=== PATIENT | male | born 1945 | race Caucasian/White ===

== ENCOUNTER 2016-12-23 10:45 | Observation (INO) ==
--- NOTE | 2016-12-23 11:36 | EKG Report ---
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
--- NOTE | 2016-12-23 11:37 | Emergency Department Note ---
Arrival - Arrival Chief Complaint: Dizziness Stated Complaint: dizziness,light headed ED Nursing Triage Note: C/o dizziness-onset 3 days ago. Reports he was seen at [facility] on and dx with vertigo. Reports that he was not given any prescriptions to help with dizziness and is no better. Mode of Arrival: Wheelchair Limitations: No Limitations Source: Patient, Family Time Seen by Provider: 12/23/16 11:15 - History of Present Illness HPI Narrative: The patient complains of dizziness and weakness for the past 2 days off and on. It is worse when he sits up. He describes it as feeling off balance and feeling like the room spinning but also feeling lightheaded. No nausea or vomiting. No chest pain or shortness of breath. No weakness or numbness. His states that he became very pale when he had an episode. He was seen at [facility] 2 days ago and told he was dehydrated and had vertigo but was given no treatment or prescriptions. He took meclizine yesterday, which was apparently left over from a prior episode of vertigo, but it did not help. Allergies/Adverse Reactions: Allergies Allergy/AdvReac Type Severity Reaction Status Date / Time No Known Allergies Allergy Verified 12/23/16 10:54 Home Medications: Home Medications Medication Instructions Recorded Confirmed Type Aspirin [Ecotrin] 81 mg PO DAILY 02/01/16 12/23/16 History Docusate Sodium 100 mg PO DAILY 02/01/16 12/23/16 History Ferrous Sulfate [Ferrous Sulfate 325 mg PO DAILY 02/01/16 12/23/16 History Cap] Levothyroxine Tab [Synthroid Tab] 50 mcg PO QAM 02/01/16 12/23/16 History amLODIPine [Norvasc] 2.5 mg PO DAILY #30 tablet 02/03/16 12/23/16 Rx Atorvastatin [Lipitor] 20 mg PO BEDTIME 12/23/16 12/23/16 History Pantoprazole Tab [Protonix Tab] 20 mg PO DAILY 12/23/16 12/23/16 History Review of System - Review of System 12 point system: reviewed and no additional remarkable complaints except as stated - Review of System Constitutional: Absent: fever Eyes: Absent: vision change Head/Ears/Nose/Throat: Absent: nasal drainage, sore throat Respiratory: Absent: cough Cardiovascular: Absent: chest pain Gastrointestinal: Absent: nausea, vomiting Musculoskeletal: Present: arm pain (right shoulder) Neurological: Present: abnormal gait, vertigo. Absent: headache, weakness, numbness Medical,Surgical,& Family Hx - Medical History Cardio: History of: Hypertension Neurology: History of: Parkinson's Disease Endocrine: History of: Dyslipidemia, Thyroid Disorder Gastrointestinal: History of: GERD Hematology: History of: Anemia - Surgical History Surgical History: noncontributory - Family History Family History: noncontributory - Social History Smoking Status: Never smoker Frequency of Alcohol Use: None Type of Drug Use: None Exam Physical Examination: GENERAL: Alert. No acute distress. HEENT: Normocephalic and atraumatic. PERRLA. EOMI. No nystagmus. Tympanic membranes normal bilaterally. There is no nasal drainage. No pharyngeal erythema or exudate. NECK: Normal inspection. Supple. No lymphadenopathy or meningismus. LUNGS: No respiratory distress. Clear to auscultation bilaterally, no wheezes, rales or rhonchi. HEART: Regular rate and rhythm. ABDOMEN: Soft, nontender and nondistended with normoactive bowel sounds. BACK: Normal inspection. SKIN: Color normal. Warm and dry. EXTREMITIES: Nontender. Normal range of motion. No pedal edema. NEUROLOGICAL/PSYCHIATRIC: Alert and oriented 3 with normal mood and affect. Essential tremor. Cranial nerves normal. No motor or sensory deficit. Hallpike negative bilaterally. Normal finger to nose bilaterally. Vital Signs: Vital Signs Temperature 97.0 F L 12/23/16 11:15 Pulse Rate 60 12/23/16 13:30 Respiratory Rate 20 12/23/16 13:30 Blood Pressure 137/82 12/23/16 13:30 O2 Sat by Pulse Oximetry 96 12/23/16 13:30 Course - Reevaluation(s) Reevaluation #1: Although the patient has had problems with syncopal and presyncopal dizziness" in the past, this appears to be vertigo. He has not had syncope or felt like he was going to pass out. He complains of the room spinning and feeling off balance. He has not fallen yet but has come close when he gets up to go to the restroom and his is not able to hold him up any longer. I have discussed this patient with the hospitalist service who will see him and admit. Time: 14:54 Results - Labs CBC & BMP: 12/23/16 11:14 12/23/16 12:22 Lab Results: I have reviewed the patients labs Labs: Laboratory Tests 12/23/16 12/23/16 12/23/16 11:14 11:31 12:22 INR 1.0 Troponin I < 0.015 Free T4 0.94 TSH 3rd Generation 2.260 Ur Specific [place] 1.006 Urine Leukocytes Negative Urine RBC 2 Urine WBC <1 - Impressions CT of the head showed no acute abnormality. Disposition Clinical Impression: Vertigo Case discussed with: patient, patient's family Disposition: Still a Patient Condition: Stable Time of Disposition: 14:54
[2016-12-23 11:42] LABS: Basophils # 0.1 10*3/uL (0.0-0.2); Basophils % 0.8 % (0.0-0.8); Eosinophils # 0.2 10*3/uL (0.0-0.87); Eosinophils % 2.9 % (0.00-10.9); Hemoglobin 13.1 GM/DL (14.0-18.0); Immature Granulocytes % 0.2 %; Immature Granulocytes Absolute 0.01 #; Lymphocytes % 16.3 % (21.2-54.2); Mean Corpuscular HGB Conc 34.5 GM/DL (32-36); Mean Corpuscular Hemoglobin 34 PG (27-34); Mean Corpuscular Volume 98.4 FL (87-102); Mean Platelet Volume 9.2 FL (9.6-12.0); Monocytes # 0.4 10*3/uL (0.11-0.8); Monocytes % 7.2 % (1.7-12.7); Neutrophils # 4.5 10*3/uL (1.4-7.4); Neutrophils % 72.6 % (38.7-73.9); Platelet Count 237 T/CUMM (130-400); Red Blood Count 3.86 MC/CUMM (3.8-5.5); Red Cell Distribution Width 12.5 % (9.3-17.3); White Blood Count 6.1 T/CUMM (4-12)
[2016-12-23 11:53] LABS: PT Patient Result 10.5 SECS
--- NOTE | 2016-12-23 12:19 | CT Report ---
History: Dizziness Date: 12/23/2016 Study: CT head without contrast Comparison exam: CT head February 16, [address] sections were obtained through the head without IV contrast. Total DLP measures 1081.1 mGy*cm. The CT exam was performed using one or more of the following dose reduction techniques: Automated exposure control and adjustment of the mA and/or kV according to patient size. The ventricles are midline in position without evidence of hydrocephalus. There is no mass or parenchymal hemorrhage. There is no gross CT evidence of acute cortical stroke. There is a small amount of ill-defined low density in the periventricular white matter without mass effect compatible with changes of small vessel disease. There is no extra-axial hematoma. The partially visualized paranasal sinuses and mastoid air cells are clear. There is no acute abnormality of the calvarium. Impression: No acute intracranial abnormality compared to the previous study PROCEDURE INTERPRETED AT [facility] DEPARTMENT OF RADIOLOGY Final Report Signed by: Dr. Carolin Ramírez
[2016-12-23 12:51] LABS: Apearance,Urine CLEAR (Clear); Bilirubin,Urine Negative (Negative); Blood, Urine Small mg/dL (Negative); Glucose,Urine (UA) Negative (Negative); Ketones,Urine Negative (Negative); Mucus,Urine Occasional /LPF (Occasional); Nitrite,Urine Negative (Negative); Protein,Urine Negative; RBC,Urine 2 /HPF (0-4); Squamous Epithelial Cell,Urine Occasional /HPF (0-10); Urine Color Yellow (Yellow); Urine Specific Gravity 1.006 (1.001-1.035); Urine Urobilinogen < 2.0 EU/DL (0.2-1.0); WBC,Urine <1 /HPF (0-6)
[2016-12-23 13:07] LABS: Alanine Aminotransferase 32 U/L (16-61); Albumin 3.9 G/DL (3.4-5.0); Alkaline Phosphatase 77 U/L (45-117); Aspartate Amino Transferase 24 U/L (0-37); Bilirubin,Total < 0.39 MG/DL (0.2-1.0); Blood Urea Nitrogen 9 MG/DL (7-18); Free T4 (Free Thyroxine) 0.94 NG/DL (0.76-1.46); Glucose 102 MG/DL (74-106); Osmolality,Calculated 275.5 MOS/KG (273-304); Potassium 4.1 MMOL/L (3.5-5.1); Sodium 139 MMOL/L (136-145); Total Protein 7.1 G/DL (6.4-8.3); Troponin I Only < 0.015 NG/ML (0.00-0.045)
--- NOTE | 2016-12-23 16:23 | Hospitalist History & Physical ---
<Christiano Johansen - Last Filed: 12/23/16 16:15> Assessment and Plan (1) Vertigo Status: Acute Current Visit: Yes History of Present Illness Chief complaint: veritgo History of present illness: Mr. Hunter is a 71-year-old white male patient with complaints of dizziness and weakness that has lasted for the last 2 days on and off. Patient reports mild nausea but no vomiting or chest pain. Patient also denies being short of breath. Patient describes the episodes as feeling off balance with the room spinning but also being lightheaded. He stated that he took 3 meclizine at home yesterday which resulted in elevated blood pressure but did not have his vertigo. Patient has a past medical history of hypertension,dyslipidemia, thyroid disorder, Parkinson's disease, and anemia. Patient reports a similar episode last year which resulted in med linq device being implanted by Dr. Conrad. Patient will be admitted to the hospitalist service for further evaluation and treatment. Patient will be placed in monitored bed. ENT and cardiology will be consulted for recommendations for the patient. Home Medications Medication Instructions Recorded Confirmed Type Aspirin [Ecotrin] 81 mg PO DAILY 02/01/16 12/23/16 History Docusate Sodium 100 mg PO DAILY 02/01/16 12/23/16 History Ferrous Sulfate [Ferrous Sulfate 325 mg PO DAILY 02/01/16 12/23/16 History Cap] Levothyroxine Tab [Synthroid Tab] 50 mcg PO QAM 02/01/16 12/23/16 History amLODIPine [Norvasc] 2.5 mg PO DAILY #30 tablet 02/03/16 12/23/16 Rx Atorvastatin [Lipitor] 20 mg PO BEDTIME 12/23/16 12/23/16 History Pantoprazole Tab [Protonix Tab] 20 mg PO DAILY 12/23/16 12/23/16 History Allergies Allergy/AdvReac Type Severity Reaction Status Date / Time No Known Allergies Allergy Verified 12/23/16 10:54 Medical,Surgical,& Family Hx - Medical History Cardio: History of: Hypertension Neurology: History of: Parkinson's Disease Endocrine: History of: Dyslipidemia, Thyroid Disorder Gastrointestinal: History of: GERD Hematology: History of: Anemia - Social History Smoking Status: Never smoker Frequency of Alcohol Use: None Type of Drug Use: None Marital Status: Lives With:: Spouse Exam - Constitutional Vitals: Period Temp Pulse Resp BP Sys/Ford Pulse Ox Last 24 Hr 97.0 F-97.0 F 59-70 18-20 137-162/82-93 95-97 General appearance: normal weight, no acute distress - Head Head exam: Present: normal inspection, normocephalic - Eye Eye exam: Present: EOMI Pupils: Present: DONI - Neck Neck exam: Present: normal inspection - Respiratory Respiratory exam: Present: clear to auscultation bilaterally - Cardiovascular Cardiovascular exam: Present: regular rate and rhythm - GI/Abdominal GI/Abdominal exam: Present: normal bowel sounds, soft. Absent: tenderness - Extremities Exam Extremities exam: Present: normal inspection, normal capillary refill, full ROM - Neurological Exam Neurological exam: Present: oriented X3 - Psychiatric Psychiatric exam: Present: normal affect, normal mood - Skin Skin exam: Present: normal color, warm, dry Results - Labs CBC & BMP: 12/23/16 11:14 12/23/16 12:22 Lab Results: I have reviewed the past 24 hour labs <Dalton Mars - Last Filed: 12/23/16 16:35> Assessment and Plan (1) HTN (hypertension) Status: Chronic Current Visit: No (2) Pre-syncope Status: Resolved Current Visit: No (3) Vertigo Status: Acute Current Visit: Yes History of Present Illness History of present illness: Mr. Polanco is a 71 year old male Patient was seen independently by me in the emergency room. Case was discussed with patient and his . He's had significantly extensive workup for dizziness I Dr. Maynard and Dr. Conrad. He had a living device placed and had carotid Dopplers echocardiogram and stress testing done. He also was seen by Dr. Quarles and had an MRI done which apparently was unremarkable family. He was also sent to [facility] for evaluation and felt that he does not have Parkinson 's disease and his Sinemet was discontinued. He is currently presenting with 2 day symptoms when he does feel the room was spinning although it's not occurring all the time. He does not seem to have any nystagmus when I examined him. He tried one dose of meclizine but it did not help. He's being admitted for observation and ENT evaluation along with possible evaluation for benign positional vertigo. Patient and family were concerned about going home today as they felt that he may fall. We will get PT to do [place]-Hallpike maneuver and [facility] for their opinion. I'm reluctant to start him on Valium till its confirm that he has benign positional vertigo. We will also consult Dr. Maynard who has seen him on several occasions for these issues. We will also check his thyroid functions. On examination patient does not have Romberg' s and I did not appreciate any horizontal or vertical nystagmus. Review of systems revealed dizziness and vertigo. Patient denied chest pain or shortness of breath. I've reviewed Mrs. johansen history and physical and I agree with the documentation except as noted above Exam - Constitutional Vitals: Period Temp Pulse Resp BP Sys/Ford Pulse Ox Last 24 Hr 97.0 F-97.0 F 56-70 18-20 137-162/82-98 95-97 Results - Labs CBC & BMP: 12/23/16 11:14 12/23/16 12:22
[2016-12-23] MEDS ORDERED: BISACODYL 5 MG TABLET PO PRN (16:29)
[2016-12-23] MEDS ORDERED: DOCUSATE SODIUM 100 MG CAPSULE PO PRN (16:29)
--- NOTE | 2016-12-23 16:41 | XRay Report ---
History: Shortness of breath Date: 12/23/2016 Study: Chest x-ray AP portable Comparison exam: February 02, 2016 chest x-ray There is cardiomegaly. The mediastinal contour is unchanged. There is mild ectasia and tortuosity of the thoracic aorta. The pulmonary vasculature is not engorged. The lungs and pleural spaces are clear. Electronic monitoring device overlies the left mid chest. The osseous structures are unchanged. Impression: No acute cardiopulmonary process compared to the previous study. Cardiomegaly PROCEDURE INTERPRETED AT [facility] DEPARTMENT OF RADIOLOGY Final Report Signed by: Dr. Carolin Ramírez
[2016-12-23] MEDS ORDERED: ACETAMINOPHEN 325 MG TABLET PO PRN (17:56)
[2016-12-23] MEDS ORDERED: ENOXAPARIN 40 MG/0.4 ML SYRINGE SUBCUT ONE (19:00)
[2016-12-23] MEDS: ATORVASTATIN 20 MG TABLET PO SCH (20:37)
[2016-12-23] MEDS: ACETAMINOPHEN 325 MG TABLET PO PRN (20:38)
[2016-12-23] MEDS: PRIMIDONE 50 MG TABLET PO SCH (23:35)
[2016-12-24 05:44] LABS: Basophils # 0.1 10*3/uL (0.0-0.2); Basophils % 0.9 % (0.0-0.8); Eosinophils # 0.2 10*3/uL (0.0-0.87); Eosinophils % 4.3 % (0.00-10.9); Hematocrit 33.1 VOL% (42.0-52.0); Hemoglobin 11.6 GM/DL (14.0-18.0); Immature Granulocytes % 0.4 %; Immature Granulocytes Absolute 0.02 #; Lymphocytes # 1.8 10*3/uL (1.4-4.0); Lymphocytes % 34.3 % (21.2-54.2); Mean Corpuscular Hemoglobin 34 PG (27-34); Mean Corpuscular Volume 96.8 FL (87-102); Mean Platelet Volume 9.5 FL (9.6-12.0); Monocytes # 0.6 10*3/uL (0.11-0.8); Monocytes % 10.4 % (1.7-12.7); Neutrophils # 2.7 10*3/uL (1.4-7.4); Neutrophils % 49.7 % (38.7-73.9); Platelet Count 220 T/CUMM (130-400); Red Blood Count 3.42 MC/CUMM (3.8-5.5); Red Cell Distribution Width 12.6 % (9.3-17.3); White Blood Count 5.4 T/CUMM (4-12)
[2016-12-24 06:12] LABS: Calcium 8.5 MG/DL (8.5-10.1); Osmolality,Calculated 276.4 MOS/KG (273-304); Potassium 3.8 MMOL/L (3.5-5.1)
[2016-12-24 06:17] LABS: Albumin 3.4 G/DL (3.4-5.0); Bilirubin,Total 0.9 MG/DL (0.2-1.0); Calcium 8.7 MG/DL (8.5-10.1); Potassium 3.8 MMOL/L (3.5-5.1); Total Protein 6.2 G/DL (6.4-8.3)
[2016-12-24] MEDS: LEVOTHYROXINE 50 MCG TABLET PO SCH (07:23)
[2016-12-24] MEDS ORDERED: PANTOPRAZOLE 40 MG TABLET PO SCH (09:00)
[2016-12-24] MEDS: ASPIRIN EC 81 MG TABLET PO SCH (09:38)
[2016-12-24] MEDS: amLODIPine 2.5 MG TABLET PO SCH (09:39)
[2016-12-24] MEDS: DOCUSATE SODIUM 100 MG CAPSULE PO SCH (09:39)
[2016-12-24] MEDS: FERROUS SULFATE 325 MG TABLET PO SCH (09:39)
[2016-12-24] MEDS: PRIMIDONE 50 MG TABLET PO SCH ×3 (09:39→18:03)
[2016-12-24] MEDS: PANTOPRAZOLE 40 MG TABLET PO SCH (09:40)
[2016-12-24] MEDS: ACETAMINOPHEN 325 MG TABLET PO PRN (12:08)
--- NOTE | 2016-12-24 12:20 | Hospitalist Progress Note ---
Assessment and Plan (1) Vertigo Status: Acute Assessment and plan: The patient has been having complaint of vertigo and headache. In the emergency room the patient was noted to be hypertensive but this has resolved after admission to the floor. We await consultations with ear nose and throat and neurology positions. Current Visit: Yes (2) Parkinson disease Status: Chronic Current Visit: No (3) HTN (hypertension) Status: Chronic Current Visit: No Hospitalist: Subjective Interval history: The patient was admitted to the hospital with unsteady gait, dizziness, and headache. The patient awaits consultation with the neurologist and ENT physician. Exam - Constitutional Vitals: Period Temp Pulse Resp BP Sys/Ford Pulse Ox Last 24 Hr 97.2 F-97.6 F 55-65 18-20 120-143/67-79 95-98 Exam: Constitutional System: Mild distress. The patient has a resting tremor which is worse on the right Head: Normocephalic, atraumatic. Ears, Nose and Throat System: No evidence of Otitis or Mastoiditis. No epistaxis or discharge Eyes System: Pupils equal, round, and reactive. Extraocular muscles intact. Neck: Supple, without adenopathy, No jugular venous distention. No thyromegaly , neck mass, or prior surgery apparent. Respiratory System: Chest clear to auscultation. Cardiovascular System: Heart with regular rate and rhythm. No murmur. GI System: Abdomen soft, nontender. Normo active bowel sounds present. Results - Labs CBC & BMP: 12/24/16 04:28 12/24/16 04:28 Lab Results: I have reviewed the past 24 hour labs
--- NOTE | 2016-12-24 15:36 | Neurology Consult Note ---
History of Present Illness History of present illness: Mr. Hunter is a 71-year-old right-handed white gentleman past medical history significant for essential tremor who has been admitted to the hospital with complaints of dizziness and weakness that has lasted for the last 2 days on and off. Patient reports mild nausea but no vomiting or chest pain. Patient also denies being short of breath. Patient describes the episodes as feeling off balance with the room spinning but also being lightheaded. He stated that he took 3 meclizine at home which resulted in elevated blood pressure but did not help his vertigo. Patient has a past medical history of hypertension, dyslipidemia, thyroid disorder, and anemia. Patient has been worked up for Parkinson disease and it was negative. patient reports a similar episode last year which resulted in med linq device being implanted by Dr. Conrad. CT of the head reveals no acute abnormalities Home Medications Medication Instructions Recorded Confirmed Type Aspirin [Ecotrin] 81 mg PO DAILY 02/01/16 12/23/16 History Docusate Sodium 100 mg PO DAILY 02/01/16 12/23/16 History Ferrous Sulfate [Ferrous Sulfate 325 mg PO DAILY 02/01/16 12/23/16 History Cap] Levothyroxine Tab [Synthroid Tab] 50 mcg PO QAM 02/01/16 12/23/16 History amLODIPine [Norvasc] 2.5 mg PO DAILY #30 tablet 02/03/16 12/23/16 Rx Atorvastatin [Lipitor] 20 mg PO BEDTIME 12/23/16 12/23/16 History Pantoprazole Tab [Protonix Tab] 20 mg PO DAILY 12/23/16 12/23/16 History Primidone 75 mg PO TID W/MEALS 12/23/16 12/23/16 History Allergies Allergy/AdvReac Type Severity Reaction Status Date / Time No Known Allergies Allergy Verified 12/23/16 10:54 12 point system: reviewed and no additional remarkable complaints except as stated Medical,Surgical,& Family Hx - Medical History Cardio: History of: CHF, Hypertension Neurology: History of: Parkinson's Disease HEENT: History of: Eye Problem (cataracts removed, implants placed) Endocrine: History of: Dyslipidemia, Thyroid Disorder Gastrointestinal: History of: GERD Hematology: History of: Anemia - Surgical History Orthopedic Surgeries: Surgical HX of;: Orthopedic Surgery (right wrist plate placed post fx) - Family History Family History: Reports;: Family Heart Disease (mother, father) - Social History Smoking Status: Never smoker Frequency of Alcohol Use: None Type of Drug Use: None Exam - Constitutional Vitals: Period Temp Pulse Resp BP Sys/Ford Pulse Ox Last 24 Hr 97.2 F-99.1 F 55-65 18-20 120-143/67-79 95-98 Exam: GENERAL: Patient is in no acute distress. NECK: Neck is supple. There is no JVD. No carotid bruits present. No thyroid masses. CVS: First and second heart sounds are normal. There is no S3 present. Regular rate and rhythm. RESPIRATORY: Lungs are clear to auscultation without any rales or rhonchi. ABDOMEN: Soft and non-tender. Bowel sounds are present. There is no hepatosplenomegaly. EXT: There is no palpable edema. Peripheral pulses are present. Skin: No rashes Central Nervous system: General: Alert, awake and Oriented x 3 Speech: Fluent Comprehension: Intact and normal Facial expressions: Normal Cranial Nerves: CN1/Olfactory: Normal CN II/ Optic: Normal, Visual Keys unreliable CN III, and : DONI & EOMI CN V: Normal & intact CN VII: face is symmetric CNVIII: Normal CN XI/X/XI/XII: Intact and Normal Motor: Bulk and Tone is normal. Bilateral hand and head tremors Strength in the right 5/5 Strength in the left 5/5 Sensory: Grossly intact for all the modalities of PP, LT and temp sense Reflexes: 1+ and symmetrical Cerebellar function: Normal finger to nose and heel to mead testing. Toes: Equivocal Gait: Able to get up and walk Results - Labs CBC & BMP: 12/24/16 04:28 12/24/16 04:28 Assessment and Plan (1) Dizziness, nonspecific Status: Acute Assessment and plan: No clear evidence of stroke, TIAs, epilepsy or seizures. This could very well be due to medications or blood pressure etiology. I would recommend watchful observation from neuro standpoint Patient appears to be back to his baseline from neuro standpoint ENT has also been consulted. Thank you for the consult Current Visit: Yes
--- NOTE | 2016-12-24 17:18 | Consultation ---
Assessment and Plan - Time spent with patient Time spent with patient: Greater than 30 minutes (1) Vertigo Status: Acute Assessment and plan: His history is not consistent with an otologic source of vertigo. If there is a up beating nystagmus at the time of the vertigo this would be more consistent with a central phenomenon but per neurology is central exam is essentially negative though if his hypertension intermittently is significantly increased this could cause some transient central symptoms. I would defer to the hospitalist for cardiovascular and hypertension and to neurology for underlying neurological complaints. I do not feel there is an otologic source this is not consistent with Mnire's disease though in the future an audiogram may be important but likely would not yield additional information. Additionally a vestibular migraine could potentially be in the differential but this would most likely be secondary to the hypertension and not primary and would therefore be difficult to treat because of his hypertension. But this may be a treatment option once his hypertension is better controlled. But overall I feel a vestibular migraine is unlikely with the history that is presented. Thank you very much for this consult I will sign off on this patient but I remain available if there is any additional questions or concerns or changes in his symptoms. Current Visit: Yes (2) HTN (hypertension) Status: Chronic Current Visit: No (3) Dizziness Status: Acute Current Visit: Yes History of Present Illness - Data of Consult Patient: new to practice Consult date: 12/24/16 Requesting Physician: Sam Gannon - Consult Narrative Reason for consult: Vertigo, dizziness History of present illness: Mr. Polanco is a 71 year old male who has experienced multiple episodes of vertigo where he quotes that the world is spinning his notes that she states his eyes are "moving back and forth" when asking what direction she states up but not side to side. I have not gotten to experience 1 of these episodes and had not gotten to see his "up beating nystagmus" that is being reported. Reportedly afterwards there is a headache that is resolved with Tylenol the dizziness lasts for 15-30 minutes and there is also relationship with hypertension of 200 systolic per the . He reported at least 2 of these episodes over the weekend CC: Sam Gannon MD - Home Medications and Allergies Home Medications: Home Medications Medication Instructions Recorded Confirmed Type Aspirin [Ecotrin] 81 mg PO DAILY 02/01/16 12/23/16 History Docusate Sodium 100 mg PO DAILY 02/01/16 12/23/16 History Ferrous Sulfate [Ferrous Sulfate 325 mg PO DAILY 02/01/16 12/23/16 History Cap] Levothyroxine Tab [Synthroid Tab] 50 mcg PO QAM 02/01/16 12/23/16 History amLODIPine [Norvasc] 2.5 mg PO DAILY #30 tablet 02/03/16 12/23/16 Rx Atorvastatin [Lipitor] 20 mg PO BEDTIME 12/23/16 12/23/16 History Pantoprazole Tab [Protonix Tab] 20 mg PO DAILY 12/23/16 12/23/16 History Primidone 75 mg PO TID W/MEALS 12/23/16 12/23/16 History Allergies/Adverse Reactions: Allergies Allergy/AdvReac Type Severity Reaction Status Date / Time No Known Allergies Allergy Verified 12/23/16 10:54 12 point system: reviewed and no additional remarkable complaints except as stated Medical,Surgical,& Family Hx - Medical History Cardio: History of: CHF, Hypertension Neurology: History of: Parkinson's Disease (Reported as essential tremor as per the ) HEENT: History of: Eye Problem (cataracts removed, implants placed) Endocrine: History of: Dyslipidemia, Thyroid Disorder Gastrointestinal: History of: GERD Hematology: History of: Anemia - Surgical History Orthopedic Surgeries: Surgical HX of;: Orthopedic Surgery (right wrist plate placed post fx) - Family History Family History: Reports;: Family Heart Disease (mother, father) - Social History Smoking Status: Never smoker Frequency of Alcohol Use: None Type of Drug Use: None Exam - Constitutional Vitals: Period Temp Pulse Resp BP Sys/Ford Pulse Ox Last 24 Hr 97.2 F-99.1 F 55-65 18-20 120-143/67-79 94-98 General appearance: normal weight, no acute distress - Head Head exam: Present: normal inspection, normocephalic - Eye Eye exam: Present: EOMI Pupils: Present: DONI - ENT ENT exam: Present: normal exam, normal external ear exam, normal oropharynx, other (Tomer-Hallpike reveals no nystagmus and symptoms could not be re-created at bedside) - Expanded ENT Exam TM exam: cerumen impaction: Bilateral TM (Not completely obstructing the portion of the tympanic membrane that was seen appears clear no evidence of infection) Mouth exam: Present: moist Teeth exam: Present: other (Dentures upper and lower) - Neck Neck exam: Present: normal inspection - Respiratory Respiratory exam: Present: other (No shortness of breath or difficulty breathing ) - Cardiovascular Cardiovascular exam: Present: other (Reports of intermittent uncontrolled hypertension) - GI/Abdominal GI/Abdominal exam: Present: soft - Neurological Exam Neurological exam: Present: alert (Mild essential tremor versus a possible history of Parkinson's ), oriented X3, CN II-XII intact - Psychiatric Psychiatric exam: Present: normal affect, normal mood - Skin Skin exam: Present: normal color, warm Results - Labs CBC & BMP: 12/24/16 04:28 12/24/16 04:28 Lab Results: I have reviewed the past 24 hour labs - Diagnostic Findings Procedure: CT: pending, image reviewed by me, report reviewed by me (I agree with radiology interpretation no gross abnormality)
--- NOTE | 2016-12-24 19:55 | Cardiology Consult Note ---
Assessment and Plan (1) Dizziness Status: Acute Assessment and plan: Differential diagnosis would be inner ear problem, some neurological disease, side effect from his medication, especially primidone, but it appears to not be bradycardia or tachycardia. His linq was interrogated and during the time he had these symptoms he had normal sinus rhythm, about 80 bpm. There is no bradycardia or tachyarrhythmia. Plan/recommendation: Consult neurology regarding the possibility of this being a neurological cause or--inner ear disease or side effect of primidone. Consider consulting ENT-to see if this might be vertigo. Check blood pressure and pulse reclining standing. Get up slowly. Download of the linq-see above. Hydrate well. About 3 weeks ago, and echo. We will try to get a copy and reviewed. It was told was unremarkable. Probably has a structurally normal heart. Continue to monitor. If no specific cause is found he could possibly be discharged in the morning with follow-up. The above was discussed with the patient and his . They voiced understanding and agree with the plan. 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 Mr. Cassidy is 71. He has carried a diagnosis of Parkinson's disease for 17 more years. However his recent RADHA scan and other evaluation states he has not had Parkinson's disease but a benign tremor. He is on primidone for that problem. Is apparently had intermittent episodes of syncope or near syncope for which she has had a link placed. He comes in today after being lightheaded. The room was spinning around. He fell in a chair. He did not lose consciousness. He did not have any chest pain. He did not feel his heart racing. No orthopnea, PND, edema, syncope, cough wheezing or phlegm. His right arm and shoulder are painful at times. It hurts to move thim. Does not snore or have apnea. Does have excessive daytime somnolence. CC: Sam Gannon MD - Home Medications and Allergies Home Medications: Home Medications Medication Instructions Recorded Confirmed Type Aspirin [Ecotrin] 81 mg PO DAILY 02/01/16 12/23/16 History Docusate Sodium 100 mg PO DAILY 02/01/16 12/23/16 History Ferrous Sulfate [Ferrous Sulfate 325 mg PO DAILY 02/01/16 12/23/16 History Cap] Levothyroxine Tab [Synthroid Tab] 50 mcg PO QAM 02/01/16 12/23/16 History amLODIPine [Norvasc] 2.5 mg PO DAILY #30 tablet 02/03/16 12/23/16 Rx Atorvastatin [Lipitor] 20 mg PO BEDTIME 12/23/16 12/23/16 History Pantoprazole Tab [Protonix Tab] 20 mg PO DAILY 12/23/16 12/23/16 History Primidone 75 mg PO TID W/MEALS 12/23/16 12/23/16 History Allergies/Adverse Reactions: Allergies Allergy/AdvReac Type Severity Reaction Status Date / Time No Known Allergies Allergy Verified 12/23/16 10:54 12 point system: reviewed and no additional remarkable complaints except as stated (A 12 point review of systems is negative except for as mentioned in HPI. ) Medical,Surgical,& Family Hx - Medical History Cardio: History of: CHF, Hypertension Neurology: History of: Parkinson's Disease (Reported as essential tremor as per the ) HEENT: History of: Eye Problem (cataracts removed, implants placed) Endocrine: History of: Dyslipidemia, Thyroid Disorder Gastrointestinal: History of: GERD Hematology: History of: Anemia - Surgical History Orthopedic Surgeries: Surgical HX of;: Orthopedic Surgery (right wrist plate placed post fx) - Family History Family History: Reports;: Family Heart Disease (mother, father) - Social History Smoking Status: Never smoker Frequency of Alcohol Use: None Type of Drug Use: None Marital Status: Lives With:: Spouse Functional capacity: independent ambulation Physical Examination Vital Signs Temp Pulse Resp BP Pulse Ox 97.0 F L 68 18 152/89 97 12/23/16 10:50 12/23/16 10:50 12/23/16 10:50 12/23/16 10:50 12/23/16 10:50 Other: HEENT: Pupils equal, reactive to light and accommodation Neck: NoJVD or bruit Lungs clear to auscultation Heart: Regular rhythm rate with normal S1 and S2. Apical S4 Abdomen: No hepatosplenomegaly Spine/extremities: No clubbing, cyanosis, or edema Neuro: Nonfocal Psych: No depression or anxiety Result/EKG - Labs CBC & BMP: 12/24/16 04:28 12/24/16 04:28 Lab Results: I have reviewed the past 24 hour labs Labs: Laboratory Results - last 24 hr 12/24/16 12/24/16 12/24/16 04:28 04:28 04:28 WBC 5.4 RBC 3.42 L Hgb 11.6 L Hct 33.1 L MCV 96.8 MCH 34 MCHC 35.0 RDW 12.6 Plt Count 220 MPV 9.5 L Neut % (Auto) 49.7 Lymph % (Auto) 34.3 [place] % (Auto) 10.4 Eos % (Auto) 4.3 Baso % (Auto) 0.9 H Neut # (Auto) 2.7 Lymph # (Auto) 1.8 [place] # (Auto) 0.6 Eos # (Auto) 0.2 Baso # (Auto) 0.1 Immature Gran % 0.4 Nucleated RBC % 0.0 Immature Gran # 0.02 Nucleated RBCs # 0.00 Sodium 143 140 Potassium 3.8 3.8 Chloride 104 102 Carbon Dioxide 28 28 Anion Gap 14.8 13.8 BUN 11 11 Creatinine 0.80 0.80 GFR Calculation 106 106 BUN/Creatinine Ratio 13.00 13.00 Glucose 85 88 Calculated Osmolality 282.0 276.4 Calcium 8.7 8.5 Total Bilirubin 0.90 AST 21 ALT 27 Alkaline Phosphatase 66 Total Protein 6.2 L Albumin 3.4 Globulin 2.8 Albumin/Globulin Ratio 1.2 - EKG EKG results: interpreted by sd Quality Measures - VTE Deep Vein Thrombosis/Pulmonary Embolism Present on Admission: No
[2016-12-24] MEDS: ATORVASTATIN 20 MG TABLET PO SCH (20:47)
[2016-12-25 04:10] LABS: Basophils # 0.1 10*3/uL (0.0-0.2); Basophils % 1.3 % (0.0-0.8); Eosinophils # 0.2 10*3/uL (0.0-0.87); Eosinophils % 4.4 % (0.00-10.9); Hematocrit 34.2 VOL% (42.0-52.0); Hemoglobin 11.9 GM/DL (14.0-18.0); Immature Granulocytes % 0.2 %; Immature Granulocytes Absolute 0.01 #; Lymphocytes # 1.8 10*3/uL (1.4-4.0); Lymphocytes % 32.7 % (21.2-54.2); Mean Corpuscular HGB Conc 34.8 GM/DL (32-36); Mean Corpuscular Hemoglobin 34 PG (27-34); Mean Platelet Volume 9.2 FL (9.6-12.0); Monocytes # 0.6 10*3/uL (0.11-0.8); Neutrophils # 2.8 10*3/uL (1.4-7.4); Neutrophils % 51.4 % (38.7-73.9); Platelet Count 220 T/CUMM (130-400); Red Blood Count 3.49 MC/CUMM (3.8-5.5); Red Cell Distribution Width 12.4 % (9.3-17.3); White Blood Count 5.5 T/CUMM (4-12)
[2016-12-25] MEDS: LEVOTHYROXINE 50 MCG TABLET PO SCH (06:46)
[2016-12-25] MEDS: PANTOPRAZOLE 40 MG TABLET PO SCH (08:17)
[2016-12-25] MEDS: ASPIRIN EC 81 MG TABLET PO SCH (08:21)
[2016-12-25] MEDS: FERROUS SULFATE 325 MG TABLET PO SCH (08:21)
[2016-12-25] MEDS: DOCUSATE SODIUM 100 MG CAPSULE PO SCH (08:21)
[2016-12-25] MEDS: PRIMIDONE 50 MG TABLET PO SCH ×2 (08:21→12:24)
[2016-12-25] MEDS: amLODIPine 2.5 MG TABLET PO SCH (08:21)
--- NOTE | 2016-12-25 10:02 | Cardiology Progress Note ---
Assessment and Plan (1) Dizziness Status: Acute Assessment and plan: Patient Linq device was interrogated yesterday. During his near syncopal spells he was noted to be in normal sinus rhythm at 80 bpm. No bradycardia or tachyarrhythmias were noted. Patient has had no further dizziness spells since being admitted to the hospital. Dr. Quarles and Dr. Greco saw patient yesterday in consultation. Dr. Greco feels that patient's presentation is not consistent with an otologic source of vertigo. Per Dr. Quarles there is no evidence of TIA , epilepsy or seizures. Telemetry has been benign without any overt arrhythmias or ectopy noted. Patient can be discharged home from a cardiology standpoint. Patient will keep routine follow-up appointment with Dr. Maynard. Current Visit: Yes (2) Benign essential tremor Status: Acute Current Visit: Yes Cardiology - PN: Subj Interval history: Patient was seen on the telemetry floor. Patient was resting in bed in no acute distress. Not requiring oxygen. She did well overnight and is without any new complaints this morning. He denies chest pain, heaviness and tightness. He also denies shortness of breath and any further episodes of lightheadedness and near syncope. His linq was interrogated and during the time he reported near syncope he was in normal sinus rhythm, about 80 bpm. There was no no bradycardia or tachyarrhythmias noted. Telemetry has been reviewed. No overt arrhythmias or ectopy noted. Patient is currently in a normal sinus rhythm with heart rates in the 60s. Labs have been reviewed. Vital signs are stable with systolic blood pressure of [address] Greco saw patient yesterday in consultation and feels that patient's presentation is not consistent with an otologic source of vertigo. Dr. Quarles also saw patient in consultation yesterday. He feels there is no evidence of TIA , epilepsy or seizures. He feels that this could be secondary to medications or blood pressure. Patient is okay to be discharged from cardiology standpoint. Patient will keep follow-up appointment with Dr. Maynard. Exam (Progress Note) - Constitutional Vitals: Period Temp Pulse Resp BP Sys/Ford Pulse Ox Last 24 Hr 97.4 F-99.1 F 57-70 18-20 120-139/64-76 94-98 Exam: HEENT: Pupils equal, reactive to light and accommodation Neck: NoJVD or bruit Lungs clear to auscultation without rales or rhonchi. Heart: Regular rhythm rate with normal S1 and S2. Abdomen: Soft and non-tender. Bowel sounds are present. There is no hepatosplenomegaly. Spine/extremities: No clubbing, cyanosis, or edema Neuro: Patient is awake alert oriented 3. CN II-XII intact Psych: No depression or anxiety Result/EKG - Labs CBC & BMP: 12/25/16 03:20 12/24/16 04:28 Lab Results: I have reviewed the past 24 hour labs Labs: Laboratory Results - last 24 hr 12/25/16 03:20 WBC 5.5 RBC 3.49 L Hgb 11.9 L Hct 34.2 L MCV 98.0 MCH 34 MCHC 34.8 RDW 12.4 Plt Count 220 MPV 9.2 L Neut % (Auto) 51.4 Lymph % (Auto) 32.7 [place] % (Auto) 10.0 Eos % (Auto) 4.4 Baso % (Auto) 1.3 H Neut # (Auto) 2.8 Lymph # (Auto) 1.8 [place] # (Auto) 0.6 Eos # (Auto) 0.2 Baso # (Auto) 0.1 Immature Gran % 0.2 Nucleated RBC % 0.0 Immature Gran # 0.01 Nucleated RBCs # 0.00 Quality Measures - VTE Deep Vein Thrombosis/Pulmonary Embolism Present on Admission: No
--- NOTE | 2016-12-25 10:41 | Discharge Summary ---
Hospital Course - Hospital Course Hospital Course: The patient was admitted to the hospital with symptoms of weakness and dizziness. The patient did not have any focal neurologic findings. The patient had neurology consultation with Dr. Lio Us who did not feel that the symptoms were on account of cerebrovascular disease. The patient in consultation for ENT with Dr. servin. He did not feel that the patient had true vertigo and did not recommend treatment with specific medications. The patient' s blood pressure was reevaluated by the maintenance technician 3rd shift. I did not recommend any change of therapy from present medications. The patient's symptoms have gradually improved and he is ready for discharge home to follow-up as an outpatient with Dr. Maynard. - Time spent with patient Time with patient DS: Greater than 30 minutes Diagnosis - Discharge Diagnosis (1) Vertigo Status: Resolved (2) HTN (hypertension) Status: Chronic (3) Essential tremor Status: Chronic Discharge Plan - Discharge Data Disposition: Disch To Home/Self Care Condition at Discharge: Stable Discharge Diet: advance to your usual diet Activity: resume usual activities as tolerated - Discharge Medications Continue Aspirin [Ecotrin] 81 mg PO DAILY Docusate Sodium 100 mg PO DAILY Levothyroxine Tab [Synthroid Tab] 50 mcg PO QAM Ferrous Sulfate [Ferrous Sulfate Cap] 325 mg PO DAILY amLODIPine [Norvasc] 2.5 mg PO DAILY #30 tablet Pantoprazole Tab [Protonix Tab] 20 mg PO DAILY Primidone 75 mg PO TID W/MEALS Atorvastatin [Lipitor] 20 mg PO BEDTIME - Follow Up or Referral Follow Up: Tati Maynard MD [Physician] - - Forms/Instructions Exam - Constitutional Vitals: Period Temp Pulse Resp BP Sys/Ford Pulse Ox Last 24 Hr 97.4 F-99.1 F 57-70 18-20 120-139/64-76 94-98 General appearance: no acute distress - Respiratory Respiratory exam: Present: clear to auscultation bilaterally Discharge Results Labs on day of discharge: Labs from last 24 hours 12/25/16 03:20 WBC 5.5 RBC 3.49 L Hgb 11.9 L Hct 34.2 L MCV 98.0 MCH 34 MCHC 34.8 RDW 12.4 Plt Count 220 MPV 9.2 L Neut % (Auto) 51.4 Lymph % (Auto) 32.7 [place] % (Auto) 10.0 Eos % (Auto) 4.4 Baso % (Auto) 1.3 H Neut # (Auto) 2.8 Lymph # (Auto) 1.8 [place] # (Auto) 0.6 Eos # (Auto) 0.2 Baso # (Auto) 0.1 Immature Gran % 0.2 Nucleated RBC % 0.0 Immature Gran # 0.01 Nucleated RBCs # 0.00 DS: Provider Date of admission: 12/23/16 16:27 Primary care physician: . No PCP Attending physician on admission: Dalton Mars MD Consults: 12/23/16 17:57 Consult to Pharmacy [CONS] Routine Reason for Pharmacy Consult: Adjust Meds Renal Funct 12/24/16 07:28 Consult to Physician [CONS] Routine Comment: vertigo Consulting Provider: Ghulam Servin 12/24/16 10:03 Consult to Physician [CONS] Routine Comment: known to you; dizziness, near syncope Consulting Provider: Vazquez Quarles Consult to Specialist Group: Neurology Person Notified: TYRONE Date Notified: 12/24/16 Time Notified: 10:15 Discharging clinician: Sam Gannon MD
[2016-12-25 12:01] VITALS: BP 136/71
[2016-12-25] MEDS: ACETAMINOPHEN 325 MG TABLET PO PRN (12:27)
== END 2016-12-25 13:21 | disposition home or self-care (01) ==
LOC: N.ED 10:45 → N.EDINP 10:45 → SUATTDRO 16:27 → N.EDINP 17:40 → N.TELES 17:54
PROVIDERS: ADMIT Internal Medicine; ATTEND Internal Medicine

== ENCOUNTER 2017-03-02 03:06 | Inpatient (IN) ==
--- NOTE | 2017-03-02 03:47 | Emergency Department Note ---
IBritt Gwan, am scribing for, and in the presence of, Thais Prado DO 03:44 . IJohan Debra, DO, personally performed the services described in this documentation, ascribed by Minna De La Torre in my presence, and it is both accurate and complete . Arrival - Arrival Chief Complaint: Dizziness Stated Complaint: dizziness, nausea, vomiting ED Nursing Triage Note: c/o dizziness with nausea/vomiting. pt was seen yesterday at [facility] for same complaint. pt was diagnosed with inner ear and sent home. pt states that approx 2 hours ago, pt was awakened from sleep with dizziness. pt vomited and dizziness subsided. Mode of Arrival: Stretcher Limitations: No Limitations Source: Patient, Significant other, Old Records Reviewed, RN Notes Reviewed Time Seen by Provider: 03/02/17 03:07 - History of Present Illness HPI Narrative: Patient is a 71 y/o white male who presents to the ED with a c/o dizziness and N /V with an onset yesterday. Patient was last seen in ED 12/23/2016 for similar sxs and was dx with inner ear infection to which he was admitted into hospital. stated that this onset of sxs occurred yesterday while eating. This prompted them to report to [facility] for further evaluation. S/P visit, pt was told that it was another inner ear infection and he was sent home. then noted that 2 hours POKER IN, pt woke up vomiting and c/o dizziness with associated sxs of slurred speech. This prompted their visit to [facility] for further evaluation. confirmed that pt has a baseline of diminished right side due to previous stroke and constant resting tremor due to Parkinson's dx. denies that pt has fallen or that he has had any recent trauma/injury. Pt has a PMHx of HTN, CHF, Parkinson's disease, thyroid disorder and dyslipidemia. Onset (ago): day(s) Consistency: constant Severity: moderate Allergies/Adverse Reactions: Allergies Allergy/AdvReac Type Severity Reaction Status Date / Time No Known Allergies Allergy Verified 12/23/16 10:54 Home Medications: Home Medications Medication Instructions Recorded Confirmed Type Aspirin [Ecotrin] 81 mg PO DAILY 02/01/16 12/23/16 History Docusate Sodium 100 mg PO DAILY 02/01/16 12/23/16 History Ferrous Sulfate [Ferrous Sulfate 325 mg PO DAILY 02/01/16 12/23/16 History Cap] Levothyroxine Tab [Synthroid Tab] 50 mcg PO QAM 02/01/16 12/23/16 History amLODIPine [Norvasc] 2.5 mg PO DAILY #30 tablet 02/03/16 12/23/16 Rx Atorvastatin [Lipitor] 20 mg PO BEDTIME 12/23/16 12/23/16 History Pantoprazole Tab [Protonix Tab] 20 mg PO DAILY 12/23/16 12/23/16 History Primidone 75 mg PO TID W/MEALS 12/23/16 12/23/16 History Medical,Surgical,& Family Hx - Medical History Cardio: History of: CHF, Hypertension Neurology: History of: Parkinson's Disease (Reported as essential tremor as per the ) HEENT: History of: Eye Problem (cataracts removed, implants placed) Endocrine: History of: Dyslipidemia, Thyroid Disorder Gastrointestinal: History of: GERD Hematology: History of: Anemia - Surgical History Orthopedic Surgeries: Surgical HX of;: Orthopedic Surgery (right wrist plate placed post fx) - Family History Family History: Reports;: Family Heart Disease (mother, father) - Social History Smoking Status: Never smoker Frequency of Alcohol Use: None Type of Drug Use: None Exam Vital Signs: Vital Signs Temperature 97.5 F L 03/02/17 03:06 Pulse Rate 63 03/02/17 03:06 Respiratory Rate 19 03/02/17 03:06 Blood Pressure 153/88 03/02/17 03:06 O2 Sat by Pulse Oximetry 96 03/02/17 03:06 - General General appearance: alert, in no apparent distress, other (slurred speech; constant resting tremor ) - Head Head exam: Present: atraumatic, normocephalic - Eye Eye exam: Present: normal appearance, PERRL, EOMI - ENT ENT exam: Present: normal oropharynx, mucous membranes moist, TM's normal bilaterally, normal external ear exam - Neck Neck exam: Present: full ROM, trachea midline. Absent: tenderness - Chest Chest inspection: Present: symmetric chest wall rise. Absent: tenderness - Respiratory Respiratory exam: Present: normal lung sounds bilaterally. Absent: respiratory distress - Cardiovascular Cardiovascular exam: Present: regular rate, normal rhythm, normal heart sounds. Absent: murmur, rubs - Extremities Exam Extremities exam: Present: other (pt has dimished right side due to previous stroke) - Back Exam Back exam: Present: full ROM - Neurological Exam Neurological exam: Present: alert, oriented X3, CN II-XII intact. Absent: motor sensory deficit - Psychiatric Psychiatric exam: Present: normal affect, normal mood - Skin Skin exam: Present: warm, dry, intact, normal color Course Course Narrative: pt will be admitted for nausea and vomiting to the hospitalist service Results - Labs CBC & BMP: 03/02/17 03:38 03/02/17 03:38 Lab Results: I have reviewed the patients labs Labs: Laboratory Tests 03/02/17 03:38 WBC 4.9 RBC 3.43 L Hgb 11.9 L Hct 33.1 L MCH 35 H Plt Count 237 MPV 8.7 L Baso % (Auto) 1.0 H Lymph # (Auto) 1.1 L Laboratory Tests 03/02/17 03:45 Urine pH 6.0 Ur Specific [place] 1.011 Urine Urobilinogen < 2.0 H Urine RBC 1 Urine WBC 1 Hyaline Casts 1 - Diagnostic Findings Procedure: CT: report reviewed by me (negative) Disposition Clinical Impression: Nausea & vomiting Case discussed with: patient, patient's family Disposition: Still a Patient Condition: Stable Time of Disposition: 05:20
[2017-03-02 03:51] LABS: Basophils # 0.1 10*3/uL (0.0-0.2); Eosinophils # 0.3 10*3/uL (0.0-0.87); Eosinophils % 5.1 % (0.00-10.9); Hematocrit 33.1 VOL% (42.0-52.0); Hemoglobin 11.9 GM/DL (14.0-18.0); Immature Granulocytes % 0.2 %; Immature Granulocytes Absolute 0.01 #; Lymphocytes # 1.1 10*3/uL (1.4-4.0); Lymphocytes % 23.2 % (21.2-54.2); Mean Corpuscular Hemoglobin 35 PG (27-34); Mean Corpuscular Volume 96.5 FL (87-102); Mean Platelet Volume 8.7 FL (9.6-12.0); Monocytes # 0.5 10*3/uL (0.11-0.8); Monocytes % 10.7 % (1.7-12.7); Neutrophils # 2.9 10*3/uL (1.4-7.4); Neutrophils % 59.8 % (38.7-73.9); Platelet Count 237 T/CUMM (130-400); Red Blood Count 3.43 MC/CUMM (3.8-5.5); White Blood Count 4.9 T/CUMM (4-12)
[2017-03-02 04:06] LABS: Apearance,Urine CLEAR (Clear); Bilirubin,Urine Negative (Negative); Blood, Urine Negative (Negative); Glucose,Urine (UA) Negative (Negative); Hyaline Casts,Urine 1 /LPF (0-3); Ketones,Urine Negative (Negative); Mucus,Urine Occasional /LPF (Occasional); Nitrite,Urine Negative (Negative); Protein,Urine Negative; RBC,Urine 1 /HPF (0-4); Squamous Epithelial Cell,Urine Occasional /HPF (0-10); Urine Color Yellow (Yellow); Urine Specific Gravity 1.011 (1.001-1.035); Urine Urobilinogen < 2.0 EU/DL (0.2-1.0); WBC,Urine 1 /HPF (0-6)
[2017-03-02 04:11] LABS: Barbiturates Screen,Urine Positive (Negative); Benzodiazepines Screen,Urine Negative (Negative); Cannabinoid Screen,Urine Negative (Negative); Opiate Screen,Urine Negative (Negative); Phencyclidine Screen,Urine Negative (Negative)
[2017-03-02 04:20] LABS: Alanine Aminotransferase 19 U/L (16-61); Albumin 3.4 G/DL (3.4-5.0); Alkaline Phosphatase 67 U/L (45-117); Aspartate Amino Transferase 19 U/L (0-37); Bilirubin,Total < 0.39 MG/DL (0.2-1.0); Blood Urea Nitrogen 9 MG/DL (7-18); Calcium 8.4 MG/DL (8.5-10.1); Glucose 94 MG/DL (74-106); Osmolality,Calculated 268.1 MOS/KG (273-304); Potassium 4.3 MMOL/L (3.5-5.1); Sodium 135 MMOL/L (136-145); Total Protein 6.3 G/DL (6.4-8.3)
[2017-03-02 04:21] LABS: Troponin I Only < 0.015 NG/ML (0.00-0.045)
[2017-03-02] MEDS ORDERED: ONDANSETRON 4 MG/2 ML VIAL IV STA (05:17)
[2017-03-02] MEDS ORDERED: ONDANSETRON 4 MG/2 ML VIAL ONE (05:19)
--- NOTE | 2017-03-02 06:01 | Hospitalist History & Physical ---
Assessment and Plan (1) Dizziness, nonspecific Status: Acute Current Visit: No (2) Benign essential tremor Status: Acute Current Visit: No (3) Nausea & vomiting Status: Acute Assessment and plan: Our plan for this patient will be admitting him to a monitored bed. Provide gentle hydration to him start him on a clear liquid diet and have cardiology evaluated him at the request of the . Treat his nausea. This does not sound like vertigo. It does not sound neurological. I am wondering if this rhythm problem occurs and causes the symptoms. Currently he feels fine. His is really distressed over his illness. Current Visit: Yes History of Present Illness Chief complaint: Multiple complaints History of present illness: Mr. Polanco is a 71 year old male with past medical history significant for thyroid problems, stable tremors, a large root of aorta, hypertension, and some unspecified rhythm problem who presents to our hospital [facility]. Patient is worked up and very concerned about her . He has been in and out of emergency rooms over the past couple of weeks several times. She related a story about him having a choking incident about a week ago. He had an appointment with Dr. Crook who took a look at his throat and said it was really irritated. He also had problems with the stomach. It seems like the ER physician imply that he was having some, gastro pruritic type symptoms and was constipated. He has no symptoms got better. When asked the family while they brought him in [facility]. It was because of the dizziness. He went to the hospital and [place] and they stated it was in her ear initially but then told that it was a electrolyte abnormality and recommend that he go home and eat pretzels. They said that his sodium was very low. Patient went home started throwing up cannot keep anything down and came to our hospital this time for further evaluation. When I look at the records in our system the same symptoms happen on December of this year. He had a workup with a cardiology and neurologist evaluation. There are no focal deficits on this patient. He seems to get weak at times when he has these spells. His reports that he had an implantable event monitor placed by Dr. Patricia for some of the symptoms. Patient 's is requesting that he be evaluated by cardiology. I was consulted to admit this patient. Home Medications Medication Instructions Recorded Confirmed Type Aspirin [Ecotrin] 81 mg PO DAILY 02/01/16 03/02/17 History Docusate Sodium 100 mg PO DAILY 02/01/16 03/02/17 History Levothyroxine Tab [Synthroid Tab] 50 mcg PO QAM 02/01/16 03/02/17 History amLODIPine [Norvasc] 2.5 mg PO DAILY #30 tablet 02/03/16 03/02/17 Rx Primidone 75 mg PO TID W/MEALS 12/23/16 03/02/17 History Pantoprazole Tab [Protonix Tab] 40 mg PO DAILY 03/02/17 03/02/17 History Allergies Allergy/AdvReac Type Severity Reaction Status Date / Time No Known Allergies Allergy Verified 12/23/16 10:54 Medical,Surgical,& Family Hx - Medical History Cardio: History of: CHF, Hypertension Neurology: History of: Parkinson's Disease (Reported as essential tremor as per the ) HEENT: History of: Eye Problem (cataracts removed, implants placed) Endocrine: History of: Dyslipidemia, Thyroid Disorder Gastrointestinal: History of: GERD Hematology: History of: Anemia - Surgical History Orthopedic Surgeries: Surgical HX of;: Orthopedic Surgery (right wrist plate placed post fx) - Family History Family History: Reports;: Family Heart Disease (mother, father) - Social History Smoking Status: Never smoker Frequency of Alcohol Use: None Type of Drug Use: None 12 point system: reviewed and no additional remarkable complaints except as stated Exam - Constitutional Vitals: Period Temp Pulse Resp BP Sys/Ford Pulse Ox Last 24 Hr 97.5 F-97.5 F 63-63 19-19 153-153/88-88 96 - General General appearance: alert, in no apparent distress, resting tremor - Head Head exam: Present: atraumatic, normocephalic - Eye Eye exam: Present: normal appearance, PERRL, EOMI - ENT ENT exam: Present: normal oropharynx, mucous membranes moist, TM's normal bilaterally, normal external ear exam - Neck Neck exam: Present: full ROM, trachea midline. Absent: tenderness - Chest Chest inspection: Present: symmetric chest wall rise. Absent: tenderness - Respiratory Respiratory exam: Present: normal lung sounds bilaterally. Absent: respiratory distress - Cardiovascular Cardiovascular exam: Present: regular rate, normal rhythm, normal heart sounds. Absent: murmur, rubs - Extremities Exam Extremities exam: Present: other (pt has dimished right side due to previous stroke) - Back Exam Back exam: Present: full ROM - Neurological Exam Neurological exam: Present: alert, oriented X3, CN II-XII intact. Absent: motor sensory deficit - Psychiatric Psychiatric exam: Present: normal affect, normal mood - Skin Skin exam: Present: warm, dry, intact, normal color Results - Labs CBC & BMP: 03/02/17 03:38 03/02/17 03:38
[2017-03-02] MEDS ORDERED: ONDANSETRON 4 MG/2 ML VIAL IV PRN (06:08)
[2017-03-02] MEDS ORDERED: PROMETHAZINE 25 MG/1 ML VIAL IM PRN (06:11)
[2017-03-02 07:35] LABS: Free T4 (Free Thyroxine) 0.91 NG/DL (0.76-1.46); Thyroid Stimulating Hormone 4.13 uIU/ml (0.358-3.74)
[2017-03-02] MEDS: SODIUM CHLORIDE 0.9% 1,000 ML IV SCH ×2 (08:41→16:38)
[2017-03-02] MEDS: LEVOTHYROXINE 50 MCG TABLET PO SCH (08:42)
[2017-03-02] MEDS: PRIMIDONE 50 MG TABLET PO SCH ×3 (08:42→16:37)
[2017-03-02] MEDS: ASPIRIN EC 81 MG TABLET PO SCH (08:42)
[2017-03-02] MEDS: DOCUSATE SODIUM 100 MG CAPSULE PO SCH ×2 (08:43→20:46)
[2017-03-02] MEDS: amLODIPine 2.5 MG TABLET PO SCH (08:43)
[2017-03-02] MEDS: PANTOPRAZOLE 40 MG TABLET PO SCH (08:45)
[2017-03-02] MEDS ORDERED: ENOXAPARIN 40 MG/0.4 ML SYRINGE SUBCUT SCH (09:00)
--- NOTE | 2017-03-02 10:04 | EKG Report ---
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
--- NOTE | 2017-03-02 10:51 | Hospitalist Progress Note ---
Hospitalist: Subjective Interval history: Pt states he does not have any dizziness at this time. No cp, SOB, palpitations , nausea, or vomiting. Exam - Constitutional Vitals: Period Temp Pulse Resp BP Sys/Ford Pulse Ox Last 24 Hr 97.5 F-97.5 F 48-65 15-19 120-153/69-88 96-97 Exam: General :patient was awake and alert and oriented to person and place lying in the hospital bed in no acute distress Cardiovascular :regular rate and rhythm no obvious murmurs rubs or gallops Lungs :clear to auscultation bilaterally nonlabored Abdomen :soft nontender nondistended positive bowel sounds Extremity :warm and well-perfused no clubbing cyanosis or edema Neuro :Cranial nerves II through XII are intact, he had 5 out of 5 strength of the upper and lower extremities bilaterally. He has mild asterixis. Sensory exam was grossly intact. Babinski was absent no clonus noted. Gait was not assessed Results - Labs CBC & BMP: 03/02/17 03:38 03/02/17 03:38 - Impressions (1) Dizziness, nonspecific Status: Acute Current Visit: No -Rule out cardiac arrhythmia. Awaiting cardiology eval. continue telemetry. Awaiting official CT head result -Check orthostatics (2) Benign essential tremor vs. ?Hx of Parkinson's disease Status: Acute Current Visit: No - on Primidone. (3) Nausea & vomiting Status: Acute Assessment and plan: Resolved. Awaiting diet. anti-emetics as needed Current Visit: Yes (4) Chronic hypothyroidism - On Synthroid. I think he needs a recheck of TSH in 2 weeks and if still elevated, PCP should adjust synthroid dose. I will be away several days. 1 of my associates will follow in my absence.
--- NOTE | 2017-03-02 11:43 | Cardiology Consult Note ---
Assessment and Plan (1) Syncope and collapse Status: Acute Assessment and plan: 71-year-old male, with recurrent presyncope, essential tremor, hypertension. No significant bradycardia or tachyarrhythmias documented with the ILR. -His prior neurological and cardiological workup was quite unremarkable. Reviewed again all his test results. Symptoms could be of orthostatic, less likely be a vasovagal origin. -Recommend to proceed with a tilt table test, assess severity of orthostatic component and rule out vasovagal origin. Given his tremor, the orthostatis can be due to vegetative imbalance. He could be a candidate for Midodrin or Northera. Titration would need to be carefully performed, due to baseline hypertension. -Agree with IV fluids. Can try compression stockings. -His symptoms are chronic, his current presentation is not high risk. The workup can be pursued as an outpatient. Recommend follow-up with Dr. Maynard in a week. -Please call with with further questions Current Visit: No (2) HTN (hypertension) Status: Chronic Current Visit: No (3) Pre-syncope Status: Resolved Current Visit: No (4) Bradycardia Status: Chronic Current Visit: No (5) Syncope and collapse Status: Acute Current Visit: No (6) Dizziness Status: Acute Current Visit: No History of Present Illness - Data of Consult Patient: known to practice within the last 3 years Consult date: 03/02/17 - Consult Narrative Reason for consult: presyncope History of present illness: Mr. Polanco is a 71 year old male, followed by dr. Maynard. History of recurrent presyncope, orthostatic dizziness. He has prior cardiac and neurological evaluation. He has persistent tremor, which was thought to be essential tremor, instead of Parkinson disease, per neurology. Prior cardiac evaluation confirmed that dilated aortic root, normal systolic function without significant valvular abnormalities. He had a loop recorder implanted last year. He was admitted again with episodes of severe dizziness lightheadedness and presyncopal. He did not pass out this time. TTE 11/2016: normal LVEF, mild LVH, ao root 3.9, gr 1 ddf. The ILR was interrogated, he did not have significant bradycardia, which would have triggered the detection threshold of the device, which is set at 40 bpm, at least for 4 beats or at least a 3 second pause. He had one coupled PVC in December. Review of all his prior records from 2016 also did not show evidence of critical bradycardia, he had occasional mild sinus bradycardia and some episodes of understanding. He is feeling right now, still has mild tremor, most on the right side. There is no chest pain, he denies any decreased p.o. intake recently. His baseline blood pressure is mildly elevated. CC: Ban Sy MD - Home Medications and Allergies Home Medications: Home Medications Medication Instructions Recorded Confirmed Type Aspirin [Ecotrin] 81 mg PO DAILY 02/01/16 03/02/17 History Docusate Sodium 100 mg PO DAILY 02/01/16 03/02/17 History Levothyroxine Tab [Synthroid Tab] 50 mcg PO QAM 02/01/16 03/02/17 History amLODIPine [Norvasc] 2.5 mg PO DAILY #30 tablet 02/03/16 03/02/17 Rx Primidone 75 mg PO TID W/MEALS 12/23/16 03/02/17 History Pantoprazole Tab [Protonix Tab] 40 mg PO DAILY 03/02/17 03/02/17 History Allergies/Adverse Reactions: Allergies Allergy/AdvReac Type Severity Reaction Status Date / Time No Known Allergies Allergy Verified 12/23/16 10:54 12 point system: reviewed and no additional remarkable complaints except as stated Medical,Surgical,& Family Hx - Medical History Cardio: History of: CHF, Hypertension Neurology: History of: Parkinson's Disease (Reported as essential tremor as per the ) HEENT: History of: Eye Problem (cataracts removed, implants placed) Endocrine: History of: Dyslipidemia, Thyroid Disorder Gastrointestinal: History of: GERD Hematology: History of: Anemia - Surgical History Orthopedic Surgeries: Surgical HX of;: Orthopedic Surgery (right wrist plate placed post fx) - Family History Family History: Reports;: Family Heart Disease (mother, father) - Social History Smoking Status: Never smoker Frequency of Alcohol Use: None Type of Drug Use: None Physical Examination Vital Signs Temp Pulse Resp BP Pulse Ox 97.5 F L 63 19 153/88 96 03/02/17 03:06 03/02/17 03:06 03/02/17 03:06 03/02/17 03:06 03/02/17 03:06 General: Present: Appears Well, No Apparent Distress Neck: Present: No JVD/HJR Cardiac: Present: Reg Rate and Rhythm Lungs: Present: Normal Exam Neuro: Present: Resting Tremor, Grossly Intact Abdomen: Present: Soft, Active Bowel Sounds, No Masses Extremities: Present: No Clubbing, No Cyanosis, No Edema Result/EKG - Labs CBC & BMP: 03/02/17 03:38 03/02/17 03:38 Lab Results: I have reviewed the past 24 hour labs Labs: Laboratory Results - last 24 hr 03/02/17 03/02/17 03/02/17 03:38 03:38 03:38 WBC 4.9 RBC 3.43 L Hgb 11.9 L Hct 33.1 L MCV 96.5 MCH 35 H MCHC 36.0 RDW 12.0 Plt Count 237 MPV 8.7 L Neut % (Auto) 59.8 Lymph % (Auto) 23.2 Hyde % (Auto) 10.7 Eos % (Auto) 5.1 Baso % (Auto) 1.0 H Neut # (Auto) 2.9 Lymph # (Auto) 1.1 L Hyde # (Auto) 0.5 Eos # (Auto) 0.3 Baso # (Auto) 0.1 Immature Gran % 0.2 Nucleated RBC % 0.0 Immature Gran # 0.01 Nucleated RBCs # 0.00 Sodium 135 L Potassium 4.3 Chloride 98 Carbon Dioxide 27 Anion Gap 14.3 BUN 9 Creatinine 0.90 GFR Calculation 113 BUN/Creatinine Ratio 10.00 Glucose 94 Calculated Osmolality 268.1 L Calcium 8.4 L Total Bilirubin < 0.39 AST 19 ALT 19 Alkaline Phosphatase 67 Total Creatine Kinase 90 CK-MB (CK-2) < 1.0 Troponin I < 0.015 Total Protein 6.3 L Albumin 3.4 Globulin 2.9 Albumin/Globulin Ratio 1.1 Free T4 TSH 3rd Generation Urine Color Urine Appearance Urine pH Ur Specific [place] Urine Protein Urine Glucose (UA) Urine Ketones Urine Blood Urine Nitrate Urine Bilirubin Urine Urobilinogen Urine Leukocytes Urine RBC Urine WBC Ur Squamous Epith Cells Hyaline Casts Urine Mucus Ur Culture Indicated? Urine Opiates Screen Ur Barbiturates Screen Ur Phencyclidine Scrn U Amphetamine/Methamph U Benzodiazepines Scrn U Cocaine Metab Screen U Cannabinoids Screen 03/02/17 03/02/17 03/02/17 03:38 03:45 03:45 WBC RBC Hgb Hct MCV MCH MCHC RDW Plt Count MPV Neut % (Auto) Lymph % (Auto) Hyde % (Auto) Eos % (Auto) Baso % (Auto) Neut # (Auto) Lymph # (Auto) Hyde # (Auto) Eos # (Auto) Baso # (Auto) Immature Gran % Nucleated RBC % Immature Gran # Nucleated RBCs # Sodium Potassium Chloride Carbon Dioxide Anion Gap BUN Creatinine GFR Calculation BUN/Creatinine Ratio Glucose Calculated Osmolality Calcium Total Bilirubin AST ALT Alkaline Phosphatase Total Creatine Kinase CK-MB (CK-2) Troponin I Total Protein Albumin Globulin Albumin/Globulin Ratio Free T4 0.91 TSH 3rd Generation 4.130 H Urine Color Yellow Urine Appearance Clear Urine pH 6.0 Ur Specific [place] 1.011 Urine Protein Negative Urine Glucose (UA) Negative Urine Ketones Negative Urine Blood Negative Urine Nitrate Negative Urine Bilirubin Negative Urine Urobilinogen < 2.0 H Urine Leukocytes Negative Urine RBC 1 Urine WBC 1 Ur Squamous Epith Cells Occasional Hyaline Casts 1 Urine Mucus Occasional Ur Culture Indicated? Not indicated Urine Opiates Screen Negative Ur Barbiturates Screen Positive H Ur Phencyclidine Scrn Negative U Amphetamine/Methamph Negative U Benzodiazepines Scrn Negative U Cocaine Metab Screen Negative U Cannabinoids Screen Negative - EKG EKG results: interpreted by me
[2017-03-02 16:26] LABS: Troponin I Only < 0.015 NG/ML (0.00-0.045)
[2017-03-02] MEDS: ACETAMINOPHEN 325 MG TABLET PO PRN (20:46)
--- NOTE | 2017-03-02 21:26 | CT Report ---
History: Slurred speech, dizziness, altered mental status Date: 03/02/2017 Study: CT head without contrast Comparison exam: December 23, 2016 The study was also reviewed by Shantell, with the initial report generated on 03/02/2017 at 4:[address] sections were obtained through the head without IV contrast. This CT exam was performed using one or more the following dose reduction techniques: Automated exposure control, adjustment of the MA and/or KV according to patient size, or use of iterative reconstruction technique. The ventricles are midline in position without evidence of hydrocephalus. There is mild diffuse cerebral atrophy. There is no mass or area parenchymal hemorrhage. There is no gross CT evidence of acute cortical stroke. There is no extra-axial hematoma. There is a small amount of ill-defined low density in the periventricular white matter without mass effect compatible with changes of small vessel disease. There is no acute abnormality of the calvarium. There is a rounded cyst in the scalp at the midline at the level of the craniocervical junction dorsally. This likely represents a 12 mm sebaceous cyst, but is nonspecific. Impression: No acute intracranial process PROCEDURE INTERPRETED AT [facility] DEPARTMENT OF RADIOLOGY Final Report Signed by: Dr. Carolin Ramírez
[2017-03-03] MEDS: SODIUM CHLORIDE 0.9% 1,000 ML IV SCH ×2 (02:29→12:53)
[2017-03-03] MEDS: LEVOTHYROXINE 50 MCG TABLET PO SCH (06:31)
[2017-03-03] MEDS: PRIMIDONE 50 MG TABLET PO SCH ×3 (08:58→17:29)
[2017-03-03] MEDS: ASPIRIN EC 81 MG TABLET PO SCH (08:58)
[2017-03-03] MEDS: PANTOPRAZOLE 40 MG TABLET PO SCH ×2 (08:59→18:16)
[2017-03-03] MEDS: DOCUSATE SODIUM 100 MG CAPSULE PO SCH ×2 (08:59→20:14)
[2017-03-03] MEDS: amLODIPine 2.5 MG TABLET PO SCH (08:59)
--- NOTE | 2017-03-03 09:55 | Cardiology Progress Note ---
Assessment and Plan (1) Syncope and collapse Status: Acute Assessment and plan: 71-year-old male, with recurrent presyncope, essential tremor, hypertension. Dysphagia. -Recurrent presyncope, syncope. He has orthostatic symptoms, without significant vasovagal spells. He also has intermittent choking, food sticking in his throat, and abdominal discomfort. He had prior neurological and ENT evaluation, which did not establish clear etiology. I suspect he may have some intrinsic GI pathology, or neurological issue, affecting his upper GI motility, he also has a tremor, which was not thought to be Parkinson's. -Recommend GI consult. -Continue compression stockings for orthostasis. If medical management inadequate to control his symptoms, he can be a candidate for Midodrin or Northera. He has supine hypertension, this will need to be carefully titrated. -No significant arrhythmia noted with the loop recorder -He may be moved off telemetry Current Visit: No (2) HTN (hypertension) Status: Chronic Current Visit: No (3) Pre-syncope Status: Resolved Current Visit: No (4) Bradycardia Status: Chronic Current Visit: No (5) Syncope and collapse Status: Acute Current Visit: No (6) Dizziness Status: Acute Current Visit: No Cardiology - PN: Subj Interval history: He is feeling fine. Gets dizzy with postural changes. Still feels some abdominal discomfort, and sometimes, food sticking in his throat. Exam (Progress Note) - Constitutional Vitals: Period Temp Pulse Resp BP Sys/Ford Pulse Ox Last 24 Hr 97.4 F-98.7 F 51-60 17-18 120-152/62-77 92-96 General appearance: normal weight, over weight - Head Head exam: Present: normal inspection, normocephalic - Eye Eye exam: Absent: conjunctival injection Pupils: Absent: dilated - ENT ENT exam: Present: normal external ear exam - Neck Neck exam: Present: normal inspection - Respiratory Respiratory exam: Present: clear to auscultation bilaterally - Cardiovascular Cardiovascular exam: Present: bradycardia - GI/Abdominal GI/Abdominal exam: Present: normal bowel sounds - Extremities Exam Extremities exam: Present: normal inspection, normal capillary refill. Absent: edema - Back Exam Back exam: Present: normal inspection - Neurological Exam Neurological exam: Present: alert, oriented X3 - Psychiatric Psychiatric exam: Present: normal affect, normal mood - Skin Skin exam: Present: normal color, warm. Absent: cyanosis Result/EKG - Labs CBC & BMP: 03/02/17 03:38 03/02/17 03:38 Lab Results: I have reviewed the past 24 hour labs Labs: Laboratory Results - last 24 hr 03/02/17 15:47 Total Creatine Kinase 85 CK-MB (CK-2) < 1.0 Troponin I < 0.015 - EKG EKG results: interpreted by me
[2017-03-03] MEDS ORDERED: ENOXAPARIN 40 MG/0.4 ML SYRINGE SUBCUT SCH (11:00)
--- NOTE | 2017-03-03 11:01 | Hospitalist Progress Note ---
Assessment and Plan (1) Syncope and collapse Status: Acute Current Visit: No (2) Anemia Status: Chronic Current Visit: No (3) Bradycardia Status: Chronic Current Visit: No (4) HTN (hypertension) Status: Chronic Current Visit: No (5) Dysphagia Status: Acute Assessment and plan: -Cardiology consult, recommends continued monitoring for orthostasis -We will consult gastroenterology for apparent dysphasia, evaluate for esophageal stricture -We will transfer to medical floor from telemetry -Continue current medications Current Visit: Yes Hospitalist: Subjective Interval history: Patient is a 71-year-old male admitted with bradycardia associated with syncopal episode and dizziness. The patient has been evaluated by cardiology today and they recommended GI consultation, due to history of recurrent choking and abdominal discomfort. The patient continues to complain of dizziness and weakness while both standing and sitting. He denies any chest pain or shortness of breath at the time of my examination. Exam - Constitutional Vitals: Period Temp Pulse Resp BP Sys/Ford Pulse Ox Last 24 Hr 97.4 F-98.7 F 51-60 17-18 120-152/62-77 92-96 General appearance: other (Well-developed elderly male awake and responsive) - Head Head exam: Present: normal inspection - Eye Eye exam: Present: EOMI Pupils: Present: DONI - ENT ENT exam: Present: normal exam - Respiratory Respiratory exam: Present: clear to auscultation bilaterally. Absent: rales, rhonchi, wheezes - Cardiovascular Cardiovascular exam: Present: bradycardia. Absent: tachycardia - GI/Abdominal GI/Abdominal exam: Present: normal bowel sounds, soft. Absent: ascites, distended, tenderness - Extremities Exam Extremities exam: Present: full ROM - Neurological Exam Neurological exam: Present: alert, oriented X3 - Psychiatric Psychiatric exam: Present: normal affect Results - Labs CBC & BMP: 03/02/17 03:38 03/02/17 03:38 Lab Results: I have reviewed the past 24 hour labs
--- NOTE | 2017-03-03 15:32 | Gastrointestinal Consult Note ---
Assessment and Plan (1) Dysphagia Status: Acute Assessment and plan: This patient states that he does not really have much in the way of reflux symptoms but has been experiencing dysphagia symptoms going back 17 years when he was last dilated. Patient is recently been evaluated by Ghulam Greco who by report, the patient indication that was acid damage narrowing by report from the patient's . We will perform endoscopy and likely a dilation to look at this area quite closely. I would like him to do a barium swallow as I believe he likely has some atypical chest pain from spasm that might be amenable to treatment with smooth muscle relaxant agents provided he can tolerate these. I will need him off of his anticoagulation in order to perform appropriate dilation. He will need to be n.p.o. after midnight on Saturday for the above procedure. Risks and benefits were reviewed with the patient and his and include but are not limited to: Bleeding, infection, perforation, cardiac and pulmonary compromise. Current Visit: Yes (2) Nausea & vomiting Status: Acute Assessment and plan: Patient is having some nausea and vomiting and this may be secondary to an underlying reflux or perhaps gastritis, will perform upper endoscopy to roving winder for gastritis. We can increase his Protonix to twice daily until we are sure of the findings, post upper endoscopy. This is been scheduled for Saturday, 03/05. Current Visit: Yes (3) Colon cancer screening Status: Acute Assessment and plan: This patient may benefit from colorectal cancer screening some point in future once his acute issues are controlled. Current Visit: Yes History of Present Illness Chief complaint: Dysphagia at the level of the base of throat 17 years. History of present illness: Mr. Polanco is a 71 year old male who has a somewhat confusing history of recurrent presyncope and orthostatic dizziness followed by Dr. Maynard and Dr. Conrad as well as Dr. Quarles of neurology and Dr. Ghulam Greco of ENT. The patient has had difficulty with swallowing in the past but his states that he is really not had a dilation performed in the last 17 years. The patient's elaborated this to a history of recurrent episodes of dizziness and near syncope going on staggered over the last 3 weeks, patient has had difficulty with food getting stuck and this has required treatment with glucagon in the emergency room with follow-up laryngoscopy done by Dr. Greco. He really does not have much in the way of reflux symptoms, but the food seems to get lodged about the level of his throat and upper sternal region. He has been on Protonix intermittently. He has not noticed any bright red blood per rectum or black tarry bowel movements. He denies diarrhea and constipation issues. Cannot recall who scoped him here at [facility] years ago. He is taking aspirin each day but does not appear to be on other anticoagulants. He has not had a barium swallow anytime recently. They are requesting upper endoscopy with potential dilation. The seemed to indicate that the patient's difficulty with choking/abdominal discomfort was rather minimal aspect of the hospitalization and his current problems. Home Medications Medication Instructions Recorded Confirmed Type Aspirin [Ecotrin] 81 mg PO DAILY 02/01/16 03/02/17 History Docusate Sodium 100 mg PO DAILY 02/01/16 03/02/17 History Levothyroxine Tab [Synthroid Tab] 50 mcg PO QAM 02/01/16 03/02/17 History amLODIPine [Norvasc] 2.5 mg PO DAILY #30 tablet 02/03/16 03/02/17 Rx Primidone 75 mg PO TID W/MEALS 12/23/16 03/02/17 History Pantoprazole Tab [Protonix Tab] 40 mg PO DAILY 03/02/17 03/02/17 History Allergies Allergy/AdvReac Type Severity Reaction Status Date / Time No Known Allergies Allergy Verified 12/23/16 10:54 Medical,Surgical,& Family Hx - Medical History Cardio: History of: CHF, Hypertension Neurology: History of: Parkinson's Disease (Reported as essential tremor as per the ) HEENT: History of: Eye Problem (cataracts removed, implants placed) Endocrine: History of: Dyslipidemia, Thyroid Disorder Gastrointestinal: History of: GERD Hematology: History of: Anemia - Surgical History Orthopedic Surgeries: Surgical HX of;: Orthopedic Surgery (right wrist plate placed post fx) - Family History Family History: Reports;: Family Heart Disease (mother, father) - Social History Smoking Status: Never smoker Frequency of Alcohol Use: None Type of Drug Use: None Review of systems: Constitutional: Denies fever, chills, but positive for nausea, and vomiting Eyes: Denies dry eyes, and scleral icterus HENT: He does have some headaches Cardiovascular: The patient admits to acute chest pain but no claudication Respiratory: He does have some occasional shortness of breath, wheezing, and difficulty breathing, denies cough Gastrointestinal: As noted in the HPI Genitourinary: Denies dysuria and hematuria Neurologic: Denies vision loss, and loss of sensation Musculoskeletal: He admits to some joint swelling, joint stiffness, and muscular weakness Psychiatric: Denies depression and mateo symptoms Heme-Lymph: He does have some easy bruising, lymph node enlargement or tenderness, but no night sweats, excessive bleeding Allergies-immunologic: Denies pruritus and rhinorrhea Exam - Constitutional Vitals: Period Temp Pulse Resp BP Sys/Ford Pulse Ox Last 24 Hr 97.4 F-98.7 F 51-60 17-18 120-152/62-77 92-96 General appearance: normal weight, no acute distress - Eye Eye exam: Present: EOMI. Absent: scleral icterus Pupils: Present: DONI - ENT ENT exam: Present: normal exam - Respiratory Respiratory exam: Present: clear to auscultation bilaterally. Absent: rhonchi, stridor, wheezes - Cardiovascular Cardiovascular exam: Present: regular rate and rhythm. Absent: irregular rhythm , systolic murmur, tachycardia - GI/Abdominal GI/Abdominal exam: Present: normal bowel sounds, soft. Absent: distended, guarding, tenderness, rebound - Extremities Exam Extremities exam: Present: full ROM. Absent: edema - Neurological Exam Neurological exam: Present: alert, oriented X3, CN II-XII intact. Absent: altered, motor sensory deficit - Psychiatric Psychiatric exam: Present: normal affect, normal mood - Skin Skin exam: Present: warm Results - Labs CBC & BMP: 03/02/17 03:38 03/02/17 03:38
[2017-03-04] MEDS: LEVOTHYROXINE 50 MCG TABLET PO SCH (06:20)
[2017-03-04] MEDS: PANTOPRAZOLE 40 MG TABLET PO SCH ×2 (06:21→20:32)
--- NOTE | 2017-03-04 07:46 | Gastrointestinal Progress Note ---
Assessment and Plan (1) Dysphagia Status: Acute Assessment and plan: This patient states that he does not really have much in the way of reflux symptoms but has been experiencing dysphagia symptoms going back 17 years when he was last dilated. Patient is recently been evaluated by Ghulam Greco who by report, the patient indication that was acid damage narrowing by report from the patient's . We will perform endoscopy and likely a dilation to look at this area quite closely. I would like him to do a barium swallow as I believe he likely has some atypical chest pain from spasm that might be amenable to treatment with smooth muscle relaxant agents provided he can tolerate these. I will need him off of his anticoagulation in order to perform appropriate dilation. He will need to be n.p.o. after midnight on Saturday for the above procedure. Risks and benefits were reviewed with the patient and his and include but are not limited to: Bleeding, infection, perforation, cardiac and pulmonary compromise. 03/04/17-We will be proceeding with upper endoscopy tomorrow. Now that the family is requesting colonoscopy do not want to cause barium residue in the colon and so we will cancel the barium swallow for the present time. If needed we can look for swallowing dysfunction and motility issues down the road post dilation. Current Visit: Yes (2) Nausea & vomiting Status: Acute Assessment and plan: Patient is having some nausea and vomiting and this may be secondary to an underlying reflux or perhaps gastritis, will perform upper endoscopy to reporting developer for gastritis. We can increase his Protonix to twice daily until we are sure of the findings, post upper endoscopy. This is been scheduled for Saturday, 03/05. 03/04/17--I suspect this patient may have gastritis possibly erosive which may be feeding into his anemia. We will perform dilation at the time most likely given his symptoms. His states that he gets sick with Protonix twice daily (?) but can tolerate Prilosec twice daily. Current Visit: Yes (3) Anemia Status: Chronic Assessment and plan: This patient has hematocrit dropped to 33%. We will be looking in his upper and GI tract tomorrow to see if there is any erosions or ulcerations to be causing this however the patient's points out that he has 71 years old and has never had colorectal cancer screening. She believes that it will be difficult to get him back to the hospital order to do this and so asked that we perform both procedures at the same time tomorrow. I will oblige this request. Current Visit: No (4) Colon cancer screening Status: Acute Assessment and plan: This patient may benefit from colorectal cancer screening some point in future once his acute issues are controlled. 03/04/17--We Will perform this tomorrow as per his 's/sisters request. Current Visit: Yes Gastroenterology - PN: Subj Interval history: Patient is doing all right. His is now requesting colorectal cancer screening before he goes back home, "will never get him back again". He is 71 years old and has never had colorectal cancer screening to this point. He does have anemia with hematocrit of 33% and unclear cause for this low blood count. He is to undergo both upper endoscopy tomorrow and now colonoscopy as well. He will have to have a clear liquid diet instead of full liquid diet. Exam (Progress Note) - Constitutional Vitals: Period Temp Pulse Resp BP Sys/Ford Pulse Ox Last 24 Hr 96.6 F-98.2 F 49-59 16-21 104-161/56-77 91-97 General appearance: mild distress - Head Head exam: Present: normocephalic - Eye Eye exam: Present: EOMI Pupils: Present: DONI - ENT ENT exam: Present: normal exam - Respiratory Respiratory exam: Present: clear to auscultation bilaterally. Absent: rhonchi, stridor, wheezes - Cardiovascular Cardiovascular exam: Present: bradycardia, regular rate and rhythm - GI/Abdominal GI/Abdominal exam: Present: normal bowel sounds, soft. Absent: distended, guarding, tenderness, rebound - Neurological Exam Neurological exam: Present: alert, oriented X3 Results - Labs CBC & BMP: 03/02/17 03:38 03/02/17 03:38
--- NOTE | 2017-03-04 09:34 | Hospitalist Progress Note ---
Assessment and Plan - Time spent with patient Time spent with patient: Less than 30 minutes (1) Syncope and collapse Status: Acute Assessment and plan: Patient was admitted with recurrent syncope and has been evaluated by cardiology. There are plans for possible tilt table testing as an outpatient with continued follow-up. He was transferred from telemetry to [facility] yesterday. Current Visit: No (2) HTN (hypertension) Status: Chronic Assessment and plan: Blood pressure well controlled. Continue current medical regimen. There is no evidence of orthostasis at this time. Current Visit: Yes (3) Anemia Status: Chronic Assessment and plan: Patient has been anemic. We are following we will repeat CBC in a.m. Current Visit: No (4) Dysphagia Status: Acute Assessment and plan: He has been seen by GI and is scheduled for upper endoscopy with possible esophageal dilatation in the morning followed by colonoscopy for cancer screening and further evaluation of his anemia. Continuing proton pump inhibitors. Current Visit: Yes Hospitalist: Subjective Interval history: Chart reviewed and patient examined. 71-year-old who was admitted for recurrent syncope and collapse with extensive negative cardiac evaluation in the past is also noted to have dysphagia and anemia. She has been consulted and they plan to pursue upper endoscopy with possible dilatation tomorrow morning. Patient states he has no complaints of chest pain, shortness breath, nausea, vomiting, diarrhea, constipation, melena hematochezia or hematemesis at this time. Exam - Constitutional Vitals: Period Temp Pulse Resp BP Sys/Ford Pulse Ox Last 24 Hr 96.6 F-98.2 F 49-59 16-21 104-161/56-77 91-97 General appearance: no acute distress - Head Head exam: Present: normocephalic, atraumatic - Eye Eye exam: Present: EOMI Pupils: Present: DONI - ENT ENT exam: Present: normal exam - Neck Neck exam: Present: normal inspection - Respiratory Respiratory exam: Present: clear to auscultation bilaterally - Cardiovascular Cardiovascular exam: Present: regular rate and rhythm - GI/Abdominal GI/Abdominal exam: Present: normal bowel sounds, soft. Absent: mass, tenderness - Extremities Exam Extremities exam: Absent: calf tenderness, edema - Back Exam Back exam: Present: normal inspection - Neurological Exam Neurological exam: Present: alert, oriented X3, CN II-XII intact. Absent: motor sensory deficit - Psychiatric Psychiatric exam: Present: normal affect, normal mood. Absent: agitated, anxious - Skin Skin exam: Present: warm, dry. Absent: rash Results - Labs CBC & BMP: 03/02/17 03:38 03/02/17 03:38 Lab Results: I have reviewed the past 24 hour labs
[2017-03-04] MEDS: PRIMIDONE 50 MG TABLET PO SCH ×3 (09:37→16:56)
[2017-03-04] MEDS: BISACODYL 5 MG TABLET PO SCH ×3 (09:37→23:35)
[2017-03-04] MEDS: amLODIPine 2.5 MG TABLET PO SCH (09:38)
--- NOTE | 2017-03-04 10:38 | Cardiology Progress Note ---
Sara Nolasco April RN, am scribing for, and in the presence of, Tati Maynard MD 10:38. Assessment and Plan (1) Dizziness Status: Chronic Current Visit: Yes (2) Bradycardia Status: Chronic Current Visit: Yes (3) HTN (hypertension) Status: Chronic Current Visit: Yes (4) Pre-syncope Status: Chronic Current Visit: Yes Cardiology - PN: Subj Interval history: College And Career Counselor: Dr. Maynard Cardiology note: Presyncope Mr. Polanco is a 71 year old male with a history of recurrent presyncope and orthostatic dizziness. He had a loop recorder implanted last year for recurrent presyncope. He was admitted 03/02/17 with episodes of severe dizziness , lightheadedness, nausea, vomiting. His loop recorder was interrogated and showed that he did not have significant bradycardia. He is also being worked up by Dr. Cerda for nausea and vomiting and dysphagia. He is scheduled for EGD and colonoscopy tomorrow. Apparently the symptoms started after some choking episode at [facility]. He is resting in bed in no acute distress with at bedside. He denies any chest pain, shortness of breath, palpitations, or dizziness at present. He reports he did have to episodes yesterday about 15 minutes apart where he became very dizzy and weak and then began vomiting. He reports the nurse gave him Zofran and this relieved the dizziness and vomiting. He continues to feel weak this morning. His states his blood pressure was elevated during these episodes, she things it was 180/80. Blood pressure this morning is 129/ 66. 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 Exam (Progress Note) - Constitutional Vitals: Period Temp Pulse Resp BP Sys/Ford Pulse Ox Last 24 Hr 96.6 F-98.2 F 49-59 16-21 104-161/56-77 91-97 General appearance: normal weight, no acute distress - Head Head exam: Absent: abrasion, hematoma - Eye Eye exam: Absent: periorbital swelling, laceration to eyelids - Neck Neck exam: Absent: lymphadenopathy, tenderness - Respiratory Respiratory exam: Present: clear to auscultation bilaterally. Absent: accessory muscle use, chest wall tenderness - Cardiovascular Cardiovascular exam: Present: bradycardia, regular rate and rhythm - GI/Abdominal GI/Abdominal exam: Present: normal bowel sounds, soft. Absent: distended, tenderness - Extremities Exam Extremities exam: Absent: calf tenderness, edema - Back Exam Back exam: Absent: muscle spasm, vertebral tenderness - Neurological Exam Neurological exam: Present: alert, oriented X3 - Psychiatric Psychiatric exam: Present: normal affect, normal mood - Skin Skin exam: Present: warm, dry. Absent: abrasion, cyanosis Result/EKG - Labs CBC & BMP: 03/02/17 03:38 03/02/17 03:38 Lab Results: I have reviewed the past 24 hour labs - EKG EKG results: interpreted by me EKG shows: bradycardia, sinus rhythm ICaesar Jennifer, MD, personally performed the services described in this documentation, ascribed by Shannan Ruiz RN in my presence, and it is both accurate and complete 038 .
[2017-03-04] MEDS: ACETAMINOPHEN 325 MG TABLET PO PRN (13:15)
[2017-03-04] MEDS ORDERED: POLYETHYLENE GLYCOL POWDER 255 GM BOTTLE PO ONE (16:00)
[2017-03-04] MEDS ORDERED: MAGNESIUM CITRATE 300 ML BOTTLE PO ONE (21:00)
[2017-03-05] MEDS: LEVOTHYROXINE 50 MCG TABLET PO SCH (06:02)
[2017-03-05] MEDS: PANTOPRAZOLE 40 MG TABLET PO SCH (06:02)
[2017-03-05 06:25] LABS: Basophils % 0.8 % (0.0-0.8); Eosinophils # 0.3 10*3/uL (0.0-0.87); Eosinophils % 5.1 % (0.00-10.9); Hematocrit 36.1 VOL% (42.0-52.0); Hemoglobin 13.2 GM/DL (14.0-18.0); Immature Granulocytes % 0.4 %; Immature Granulocytes Absolute 0.02 #; Lymphocytes # 1.4 10*3/uL (1.4-4.0); Lymphocytes % 27.5 % (21.2-54.2); Mean Corpuscular HGB Conc 36.6 GM/DL (32-36); Mean Corpuscular Hemoglobin 35 PG (27-34); Mean Corpuscular Volume 95.3 FL (87-102); Monocytes # 0.5 10*3/uL (0.11-0.8); Monocytes % 9.4 % (1.7-12.7); Neutrophils # 2.9 10*3/uL (1.4-7.4); Neutrophils % 56.8 % (38.7-73.9); Platelet Count 246 T/CUMM (130-400); Red Blood Count 3.79 MC/CUMM (3.8-5.5); Red Cell Distribution Width 11.9 % (9.3-17.3); White Blood Count 5.1 T/CUMM (4-12)
[2017-03-05 06:40] LABS: Calcium 8.5 MG/DL (8.5-10.1); Osmolality,Calculated 257.7 MOS/KG (273-304); Potassium 3.8 MMOL/L (3.5-5.1)
--- NOTE | 2017-03-05 12:14 | Cardiology Progress Note ---
Sara Nolasco April, RN, am scribing for, and in the presence of, Pantera Rivera MD 12:14. Assessment and Plan (1) Dysphagia Status: Acute Assessment and plan: Workup underway Current Visit: Yes (2) Dizziness Status: Chronic Assessment and plan: The patient has orthostatic lightheadedness. This is stable. His teletypesetter monitor showed no significant arrhythmia associated with these symptoms. Continue conservative management for now. Current Visit: Yes (3) Syncope and collapse Status: Acute Assessment and plan: No significant arrhythmia on implantable loop recorder. Current Visit: Yes (4) Bradycardia Status: Chronic Assessment and plan: This is mild/asymptomatic. Current Visit: Yes (5) HTN (hypertension) Status: Chronic Current Visit: Yes Cardiology - PN: Subj Interval history: Ladle Builder: Dr. Maynard Cardiology note: Presyncope Mr. Polanco is a 71 year old male with a history of recurrent presyncope and orthostatic dizziness. He had a loop recorder implanted last year for recurrent presyncope. He was admitted 03/02/17 with episodes of severe dizziness , lightheadedness, nausea, vomiting. His loop recorder was interrogated and showed that he did not have significant bradycardia. He is also being worked up by Dr. Cerda for nausea and vomiting and dysphagia. He is scheduled for EGD and colonoscopy today. Apparently the symptoms started after some choking episode at [facility]. Today Mr. Polanco is seen resting in bed in no acute distress. He denies any chest pain, shortness of breath, palpitations, or dizziness. He has not had any further near syncopal episodes. monitoring specialist currently shows sinus bradycardia with heart rates in the 50s. His pressures were better through the night, this morning 134/78. Current Medications Acetaminophen (Tylenol Tab) 650 mg PO Q4H PRN PRN Reason: Fever, Headache, Mild Pain Last Admin: 03/04/17 13:15 Dose: 650 mg Amlodipine Besylate (Norvasc) 2.5 mg PO DAILY [facility] Last Admin: 03/04/17 09:38 Dose: 2.5 mg Levothyroxine Sodium (Synthroid Tab) 50 mcg PO DAILY@0700 [facility] Last Admin: 03/05/17 06:02 Dose: Not Given Ondansetron HCl (Zofran Inj) 4 mg IV Q4H PRN PRN Reason: Nausea Last Admin: 03/03/17 14:39 Dose: 4 mg Pantoprazole Sodium (Protonix Tab) 40 mg PO BID@0700,1900 [facility] Last Admin: 03/05/17 06:02 Dose: Not Given Primidone (Mysoline) 75 mg PO TID W/MEALS [facility] Last Admin: 03/04/17 16:56 Dose: 75 mg Promethazine HCl (Phenergan Inj) 25 mg IM Q6H PRN PRN Reason: Nausea/Vomiting Exam (Progress Note) - Constitutional Vitals: Period Temp Pulse Resp BP Sys/Ford Pulse Ox Last 24 Hr 97.6 F-98.9 F 52-60 18-20 122-163/67-79 92-97 General appearance: normal weight, no acute distress - Head Head exam: Absent: abrasion, hematoma - Eye Eye exam: Absent: periorbital swelling, laceration to eyelids - Neck Neck exam: Absent: tenderness - Respiratory Respiratory exam: Present: clear to auscultation bilaterally. Absent: accessory muscle use, chest wall tenderness - Cardiovascular Cardiovascular exam: Present: bradycardia, regular rate and rhythm. Absent: rubs - GI/Abdominal GI/Abdominal exam: Present: normal bowel sounds, soft. Absent: distended, tenderness - Extremities Exam Extremities exam: Absent: calf tenderness, edema - Neurological Exam Neurological exam: Present: alert, oriented X3 - Psychiatric Psychiatric exam: Present: normal affect, normal mood - Skin Skin exam: Present: warm, dry. Absent: abrasion, cyanosis Result/EKG - Labs CBC & BMP: 03/05/17 05:16 03/05/17 05:16 Lab Results: I have reviewed the past 24 hour labs Labs: Laboratory Results - last 24 hr 03/05/17 03/05/17 05:16 05:16 WBC 5.1 RBC 3.79 L Hgb 13.2 L Hct 36.1 L MCV 95.3 MCH 35 H MCHC 36.6 H RDW 11.9 Plt Count 246 MPV 9.0 L Neut % (Auto) 56.8 Lymph % (Auto) 27.5 Cowley % (Auto) 9.4 Eos % (Auto) 5.1 Baso % (Auto) 0.8 Neut # (Auto) 2.9 Lymph # (Auto) 1.4 Cowley # (Auto) 0.5 Eos # (Auto) 0.3 Baso # (Auto) 0.0 Immature Gran % 0.4 Nucleated RBC % 0.0 Immature Gran # 0.02 Nucleated RBCs # 0.00 Sodium 131 L Potassium 3.8 Chloride 93 L Carbon Dioxide 29 Anion Gap 12.8 BUN 4 L Creatinine 0.80 GFR Calculation 106 BUN/Creatinine Ratio 5.00 L Glucose 82 Calculated Osmolality 257.7 L Calcium 8.5 - EKG EKG results: interpreted by me EKG shows: bradycardia, sinus rhythm I, Pantera Rivera MD, personally performed the services described in this documentation, ascribed by Shannan Ruiz RN in my presence, and it is both accurate and complete .
[2017-03-05] MEDS ORDERED: LIDOCAINE 2% 5 ML VIAL ONE (13:00)
[2017-03-05] MEDS ORDERED: PROPOFOL 200 MG/20 ML VIAL IV ONE (13:00)
--- NOTE | 2017-03-05 13:24 | Operative Note ---
Date of procedure: 03/05/17 Pre-op diagnosis: Anemia, nausea/vomiting, dysphagia, atypical chest pain Post-op diagnosis: other (Atypical chest pain without gross evidence of esophagitis or Mcdonnell's. There was a Schatzki's ring noted that was dilated to 57 Citizen [place] by single pass Savary dilator at the end of the case, moderate nonerosive gastritis and small hiatal hernia) Procedure: PROCEDURE: Esophagogastroduodenoscopy (EGD) with cold biopsy for pathology and dilation to 57 Citizen [place] by single pass Savary dilator REFERRING PHYSICIAN: Arik Shirley MD INDICATIONS: Anemia, atypical chest pain, nausea/vomiting, dysphagia the prior H&P was reviewed and interrim changes are as noted: No change from GI consultation 2 days ago ENDOSCOPIST: Ruben Good MD ENDOSCOPE: Olympus Video 100 System upper endoscope ASA CLASS: 4 EXAM: CV: regular rate and rhythm respiratory: Clear without wheezes abdominal: active bowel sounds MEDICATION: Per nursing anesthesia protocol, see their notes PROCEDURE: After discussion of the potential risks and benefits of upper endoscopy, the informed consent was obtained. The patient was then placed in the left lateral decubitus position where sedation was achieved as noted above. Esophageal intubation was performed without difficulty, and the endoscope was advanced through the esophagus, stomach and duodenum. A slow withdrawal was then performed with retroflexion in the stomach for careful inspection of the incisura angularis, fundus and cardia. The scope was then returned to a neutral position and withdrawn through the esophagus. The patient tolerated the procedure well and without complication. BIOPSIES: Gastric antrum/body PHOTOGRAPHS: Gastric antrum/ body FINDINGS: Hypopharynx and Larynx: Normal Esohagoscopy Upper and middle thirds: Normal Lower third normal Esophogastric junctions: Schatzki's ring patent enough to allow the scope through, dilated at the end of the case to 57 Citizen [place] by single pass Savary dilator--no gross evidence of esophagitis or Mcdonnell's. Gastroscopy: Cardia/Fundus: 2 cm hiatal hernia, moderate diffuse nonerosive gastritis Body: Moderate nonerosive gastritis, biopsied Antrum and pylorus mild patchy nonerosive gastritis Duodenoscopy: Bulb normal Second and third portions: Normal IMPRESSION: Atypical chest pain without gross evidence of esophagitis or Mcdonnell's. There was a Schatzki's ring noted that was dilated to 57 Citizen [place] by single pass Savary dilator at the end of the case, moderate nonerosive gastritis and small hiatal hernia RECOMMENDATIONS: Follow up for biopsy results in 1-2 weeks by phone [phone] Continue anti-gastroesophageal reflux measures (avoid carbonated and acidic beverages, avoid eating within 2 hours of bedtime, avoid tight fitting clothing , and elevate the front bed posts 6 inches prior to sleeping. Observe swallowing status post dilation. We can redilate in 6-18 months if this was felt to be helpful. Protonix daily should be adequate for this patient. Ruben Godo MD COPY TO: Arik Shirley MD Anesthesia: MAC Surgeon / Physician: Ruben Good Estimated blood loss: minimal Specimens: other (Gastric antrum and body) Condition: stable Disposition: post procedure unit (G.I. Suite) Results - Labs CBC & BMP: 03/05/17 05:16 03/05/17 05:16 Discharge Plan - Discharge Medications No Action Aspirin [Ecotrin] 81 mg PO DAILY Docusate Sodium 100 mg PO DAILY Levothyroxine Tab [Synthroid Tab] 50 mcg PO QAM amLODIPine [Norvasc] 2.5 mg PO DAILY #30 tablet Primidone 75 mg PO TID W/MEALS Pantoprazole Tab [Protonix Tab] 40 mg PO DAILY - Follow Up or Referral - Forms/Instructions
--- NOTE | 2017-03-05 13:46 | Operative Note ---
Date of procedure: 03/05/17 Pre-op diagnosis: Mild anemia, prior HCT 33.1%, colorectal cancer screening Post-op diagnosis: other (Single descending polyp removed by hot biopsy, mild left-sided diverticulosis, moderate size internal hemorrhoids. No source for bleeding seen on the colonoscopy today.) Procedure: PROCEDURE: Colonoscopy with hot biopsy polypectomy REFERRING PHYSICIAN: Dr. Clara Felton MD INDICATIONS: Mild anemia with hematocrit of 33.1 now up to 36% spontaneously , no previous colorectal cancer screening up to this point, patient mostly here with dysphagia and upper GI complaints. Previous EGD did show a Schatzki's ring and some nonerosive moderate gastritis the prior H&P was reviewed and interrim changes are as noted: No change from GI consultation this admission ENDOSCOPIST: Ruben Good MD ENDOSCOPE: Curriculet Video 100 System colonoscope COLON PREPARATION: 238 gm of PEG containing laxative and 1.9 liters of gatoraid/sports drink and dulcolax 15 mg q8 hours x 3 ASA CLASS: 3 EXAM: CV: regular rate and rhythm Respiratory: Clear without wheezes Abdominal: active bowel sounds Rectal: Good tone, no fissures or fistulas MEDICATION: Per nursing anesthesia protocol, see their notes PROCEDURE: After discussion of the potential risks and benefits of colonoscopy, the informed consent was obtained, from patient or health care surrogate. The patient was then placed in the left lateral decubitus position where sedation was achieved as noted above. Rectal examination was followed by insertion of the colonoscope. The colonoscope was passed under direct visualization to the cecum. Advancement was facilitated by insertion/withdrawl techniques, abdominal pressure and patient positioning. Once the cecal pole was reached, slow withdrawal was performed with the findings as noted below. The patient tolerated the procedure well and without complication. QUALITY OF PREP: Excellent WITHDRAWL TIME: 6 minutes 3 seconds BIOPSIES: Descending polyp PHOTOGRAPHS: Obtained FINDINGS: The musoca appeared normal in the following regions: rectum, sigmoid colon, splenic flexure, transverse colon, hepatic flexure, ascending colon and cecum. Position within the cecum was confirmed by ileocecal valve, appendiceal oriface, and the convergence of folds (crows foot). No colitis, mass or AVM was noted throughout the colon. Mild left-sided diverticulosis noted. There was a single 6 mm polyp noted in the proximal descending colon removed by hot biopsy. Intubation of the TI was achieved x 5 cm with normal appearence moderate size internal hemorrhoids noted on retroflex. IMPRESSION: Single descending polyp removed by hot biopsy, mild left-sided diverticulosis, moderate size internal hemorrhoids. No source for bleeding seen on the colonoscopy today. RECOMMENDATIONS: High fiber diet Repeat colonosocopy will be in 5-10 years depending on pathology of the polyp removed. Citrucel 1 tablespoon in 12 oz juice BID: 1 bottle: :11 Follow up by phone for biopsy results in 1-2 weeks by phone From my standpoint the GI workup is complete, the patient can be discharged home at this time. Ruben Good MD COPY TO: Dr. Clara Felton MD Anesthesia: MAC Surgeon / Physician: Ruben Good Estimated blood loss: minimal Specimens: other (Descending polyp) Condition: stable Disposition: post procedure unit (G.I. Suite) Results - Labs CBC & BMP: 03/05/17 05:16 03/05/17 05:16 Discharge Plan - Discharge Medications No Action Aspirin [Ecotrin] 81 mg PO DAILY Docusate Sodium 100 mg PO DAILY Levothyroxine Tab [Synthroid Tab] 50 mcg PO QAM amLODIPine [Norvasc] 2.5 mg PO DAILY #30 tablet Primidone 75 mg PO TID W/MEALS Pantoprazole Tab [Protonix Tab] 40 mg PO DAILY - Follow Up or Referral - Forms/Instructions
--- NOTE | 2017-03-05 13:55 | Gastrointestinal Progress Note ---
Assessment and Plan (1) Dysphagia Status: Acute Assessment and plan: This patient states that he does not really have much in the way of reflux symptoms but has been experiencing dysphagia symptoms going back 17 years when he was last dilated. Patient is recently been evaluated by Ghulam Greco who by report, the patient indication that was acid damage narrowing by report from the patient's . We will perform endoscopy and likely a dilation to look at this area quite closely. I would like him to do a barium swallow as I believe he likely has some atypical chest pain from spasm that might be amenable to treatment with smooth muscle relaxant agents provided he can tolerate these. I will need him off of his anticoagulation in order to perform appropriate dilation. He will need to be n.p.o. after midnight on Saturday for the above procedure. Risks and benefits were reviewed with the patient and his and include but are not limited to: Bleeding, infection, perforation, cardiac and pulmonary compromise. 03/04/17-We will be proceeding with upper endoscopy tomorrow. Now that the family is requesting colonoscopy do not want to cause barium residue in the colon and so we will cancel the barium swallow for the present time. If needed we can look for swallowing dysfunction and motility issues down the road post dilation. 03/05/17--upper endoscopy was done today and demonstrates the following: A distal esophageal stricture that was open enough to allow the scope but was dilated at the end of the case to 57 Czech by single pass Savary dilator. He tolerated this well. 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 We can increase his Protonix to twice daily until we are sure of the findings, post upper endoscopy. This is been scheduled for Saturday, 03/05. 03/04/17--I suspect this patient may have gastritis possibly erosive which may be feeding into his anemia. We will perform dilation at the time most likely given his symptoms. His states that he gets sick with Protonix twice daily (?) but can tolerate Prilosec twice daily. 03/05/17--The patient is tolerating his Protonix well, he can continue this as an outpatient he only needs it once per day. He could be discharged home in my opinion, he can follow-up with me as needed for repeat upper endoscopy and dilation in 6-18 months. Current Visit: Yes (3) Anemia Status: Chronic Assessment and plan: This patient has hematocrit dropped to 33%. We will be looking in his upper and GI tract tomorrow to see if there is any erosions or ulcerations to be causing this however the patient's points out that he has 71 years old and has never had colorectal cancer screening. She believes that it will be difficult to get him back to the hospital order to do this and so asked that we perform both procedures at the same time tomorrow. I will oblige this request. 03/05/17--the patient's upper endoscopy results are as noted above. Colonoscopy demonstrated no evidence of bleeding source. There was a single small polyp noted in the descending colon removed by hot biopsy, moderate size internal hemorrhoids were also noted on retroflex. He can certainly be discharged home, with suggest a high-fiber diet. He may wish to use MiraLAX once or twice daily if he is having constipation. Current Visit: No (4) Colon cancer screening Status: Acute Assessment and plan: This patient may benefit from colorectal cancer screening some point in future once his acute issues are controlled. 03/04/17--We Will perform this tomorrow as per his 's/sisters request. 03/05/17--this was completed today with colonoscopy demonstrating a small polyp. Likely this is hyperplastic in which case she will need a repeat colonoscopy in 10 years. If the polyp proves to be adenomatous will be advisable to have him come back in 5 years. We will call him with biopsy results when these become available. Current Visit: Yes Gastroenterology - PN: Subj Interval history: The patient did not have any difficulty with his prep, he is hungry but otherwise is without complaint. He feels like his bowel prep was effective. Exam (Progress Note) - Constitutional Vitals: Period Temp Pulse Resp BP Sys/Ford Pulse Ox Last 24 Hr 97.6 F-98.9 F 52-61 18-20 122-163/67-80 92-97 General appearance: no acute distress - Head Head exam: Present: normocephalic - Eye Eye exam: Present: EOMI - Respiratory Respiratory exam: Present: clear to auscultation bilaterally. Absent: rhonchi, stridor, wheezes - Cardiovascular Cardiovascular exam: Present: regular rate and rhythm - GI/Abdominal GI/Abdominal exam: Present: normal bowel sounds, soft. Absent: ascites, distended, tenderness - Extremities Exam Extremities exam: Absent: edema - Neurological Exam Neurological exam: Present: alert, oriented X3. Absent: altered - Psychiatric Psychiatric exam: Present: normal affect, normal mood - Skin Skin exam: Present: warm Results - Labs CBC & BMP: 03/05/17 05:16 03/05/17 05:16
--- NOTE | 2017-03-05 14:00 | Anesthesia Post-Op ---
Anesthesia Post OP - Post Ansesthetic Evaluation Patient seen in post op: Yes Resp: within normal limits CV: within normal limits Mental: within normal limits Temp: within normal limits [id number]: within normal limits Nausea and Vomiting: within normal limits Pain: within normal limits
[2017-03-05] MEDS: PRIMIDONE 50 MG TABLET PO SCH ×2 (17:42→17:43)
[2017-03-05] MEDS: amLODIPine 2.5 MG TABLET PO SCH (17:43)
--- NOTE | 2017-03-05 17:50 | Hospitalist Progress Note ---
Assessment and Plan (1) Esophageal stricture Status: Acute Assessment and plan: s/p dilatation Current Visit: Yes (2) Hiatal hernia Status: Acute Current Visit: Yes (3) Gastritis Status: Acute Current Visit: Yes Qualifiers: Gastritis type: other gastritis (4) Anemia Status: Chronic Current Visit: No (5) Dysphagia Status: Chronic Current Visit: Yes (6) Hyponatremia Status: Acute Assessment and plan: Low sodium with low osmolality. Trial of Lasix. Current Visit: Yes Hospitalist: Subjective Interval history: Patient seen and examined. No acute events overnight. Case discussed with nursing staff. Labs reviewed. Case discussed with at the bedside. GI notes reviewed. Exam - Constitutional Vitals: Period Temp Pulse Resp BP Sys/Ford Pulse Ox Last 24 Hr 97.6 F-98.8 F 52-68 16-22 119-140/67-078 92-99 Exam: Constitutional System: No distress. No tremulousness. Head: Normocephalic, atraumatic. Ears, Nose and Throat System: No pain or tenderness. No epistaxis or discharge Eyes System: Pupils equal, round, and reactive. Extraocular muscles intact. Neck: Supple, without adenopathy, No jugular venous distention. Respiratory System: Chest clear to auscultation. Cardiovascular System: Heart with regular rate and rhythm. No murmur. GI System: Abdomen soft, nontender. Normo active bowel sounds present. Musculoskeletal System: limbs with no pedal edema. Full distal pulses. Neurological System: No discernable sensory deficit. No aphasia Psychiatric System: Conversation is rational Results - Labs CBC & BMP: 03/05/17 05:16 03/05/17 05:16 Lab Results: I have reviewed the past 24 hour labs
[2017-03-06] MEDS: LEVOTHYROXINE 50 MCG TABLET PO SCH (06:05)
[2017-03-06] MEDS: amLODIPine 2.5 MG TABLET PO SCH (08:54)
[2017-03-06] MEDS: PRIMIDONE 50 MG TABLET PO SCH ×2 (08:54→13:13)
[2017-03-06] MEDS ORDERED: DOCUSATE SODIUM 100 MG CAPSULE PO SCH (09:00)
[2017-03-06] MEDS ORDERED: PANTOPRAZOLE 40 MG TABLET PO SCH (09:00)
[2017-03-06 09:07] LABS: Calcium 8.8 MG/DL (8.5-10.1); Osmolality,Calculated 263.5 MOS/KG (273-304); Potassium 3.7 MMOL/L (3.5-5.1)
--- NOTE | 2017-03-06 11:29 | Pathology Report from [facility] ---
[facility] ACCESSION # : [id number] PATIENT NAME : Merritt Polanco ORDERING DR : Ruben Good MD CLINICAL HX: #1 GERD - Dysphagia - Anemia #2 Anemia - Screening POST-OP DX: Same SPECIMEN INFO: #1 SARAH #2 Descending colon polyp GROSS DESCRIPTION: #1 Received in formalin labeled with the patients name MERRITT POLANCO and #1 consists of a 1.0 x 0.3 cm aggregate of villegas tissue. Submitted in cassette #1.#2 Received in formalin labeled with the patients name MERRITT POLANCO and #2 consists of a 0.2 x 0.2 cm villegas tissue fragment. Submitted in cassette # 2. DIAGNOSIS FOR MERRITT POLANCO: #1 STOMACH, BIOPSY: Chronic superficial gastritis. No evidence of malignancy. Special stain for H. pylori-like organisms is NEGATIVE.#2 DESCENDING COLON, BIOPSY: Benign lymphoid aggregate. No evidence of dysplasia or malignancy. COLLECTED DATE: 03/05/2017 [facility] REPORT DATE: 03/06/2017 ELECTRONICALLY SIGNED BY: Rosita Santo III, M.D. 03/06/2017 - 9:52:41 UNITED HEALTH SERVICESRegulo
--- NOTE | 2017-03-06 13:47 | Cardiology Progress Note ---
Assessment and Plan (1) Dysphagia Status: Chronic Assessment and plan: He had an esophageal stricture which is been dilated. This is improved. Current Visit: Yes (2) Dizziness Status: Chronic Assessment and plan: The patient has chronic orthostatic lightheadedness. This is a chronic stable, multifactorial problem. His deodorizer operator showed no significant arrhythmia associated with these symptoms. Continue conservative management for now. At this point, his cardiac status is stable. I am going to drop off of his case. He can follow-up with his primary electronics worker, Dr. Maynard as an outpatient on a routine basis. Current Visit: Yes (3) Hyponatremia Status: Acute Current Visit: Yes (4) Syncope and collapse Status: Acute Assessment and plan: No significant arrhythmia on implantable loop recorder. Current Visit: Yes (5) Bradycardia Status: Chronic Assessment and plan: This appears to have resolved. He had very mild sinus bradycardia in the 50s at rest in the bed. I do not think this pathologic or in need of any specific treatment. Current Visit: Yes (6) HTN (hypertension) Status: Chronic Assessment and plan: This is well controlled. Current Visit: Yes Cardiology - PN: Subj Interval history: Clinically the patient is clinically stable to improved. His dysphagia seems improved. He did have a stricture on EGD. His blood pressure has been stable. He has some chronic orthostatic hypotensive symptoms which are stable to improved. He has chronic anemia and hyponatremia which are stable to improved. There are no new complaints today. Current Medications Acetaminophen (Tylenol Tab) 650 mg PO Q4H PRN PRN Reason: Fever, Headache, Mild Pain Last Admin: 03/04/17 13:15 Dose: 650 mg Amlodipine Besylate (Norvasc) 2.5 mg PO DAILY [facility] Last Admin: 03/06/17 08:54 Dose: 2.5 mg Docusate Sodium (Colace Cap) 100 mg PO DAILY [facility] Last Admin: 03/06/17 08:54 Dose: 100 mg Furosemide (Lasix Inj) 40 mg IV ONCE ONE Stop: 03/06/17 17:49 Levothyroxine Sodium (Synthroid Tab) 50 mcg PO DAILY@0700 [facility] Last Admin: 03/06/17 06:05 Dose: 50 mcg Ondansetron HCl (Zofran Inj) 4 mg IV Q4H PRN PRN Reason: Nausea Last Admin: 03/03/17 14:39 Dose: 4 mg Pantoprazole Sodium (Protonix Tab) 40 mg PO DAILY [facility] Last Admin: 03/06/17 08:54 Dose: 40 mg Primidone (Mysoline) 75 mg PO TID W/MEALS [facility] Last Admin: 03/06/17 13:13 Dose: 75 mg Promethazine HCl (Phenergan Inj) 25 mg IM Q6H PRN PRN Reason: Nausea/Vomiting Exam (Progress Note) - Constitutional Vitals: Period Temp Pulse Resp BP Sys/Ford Pulse Ox Last 24 Hr 97.0 F-98.8 F 57-68 18-22 109-150/54-078 93-98 Exam: General: Frail, elderly HEENT: Normocephalic, atraumatic Neck: Supple Neck, Midline Trachea Cardiac: Regular rhythm, 2/6 systolic murmur, no gallop, no rub Lungs: Clear to Ascultation, No Wheeze, Rales, Rhonchi Neuro: Cranial Nerve 2-12 Intact, diffuse generalized weakness, mild parkinsonian-like tremor Abdomen: Soft, Active Bowel Sounds, No Masses, No Pulsations/Bruits Skin: Normal color, no rash Extremities: No Clubbing, No Cyanosis, No Edema, Normal Upper Extr. Pulses Musculoskeletal: No acute abnormality noted Psychiatric: The patient is alert and oriented. The patient has a flat affect but does not appear to be anxious or depressed. Result/EKG - Labs CBC & BMP: 03/05/17 05:16 03/06/17 08:32 Lab Results: I have reviewed the past 24 hour labs Labs: Laboratory Results - last 24 hr 03/06/17 08:32 Sodium 132 L Potassium 3.7 Chloride 94 L Carbon Dioxide 28 Anion Gap 13.7 BUN 7 Creatinine 1.00 GFR Calculation 88 BUN/Creatinine Ratio 7.00 Glucose 140 H Calculated Osmolality 263.5 L Calcium 8.8 - EKG EKG results: interpreted by me
--- NOTE | 2017-03-06 16:45 | Gastrointestinal Progress Note ---
Assessment and Plan (1) Dysphagia Status: Chronic Assessment and plan: This patient states that he does not really have much in the way of reflux symptoms but has been experiencing dysphagia symptoms going back 17 years when he was last dilated. Patient is recently been evaluated by Ghulam Greco who by report, the patient indication that was acid damage narrowing by report from the patient's . We will perform endoscopy and likely a dilation to look at this area quite closely. I would like him to do a barium swallow as I believe he likely has some atypical chest pain from spasm that might be amenable to treatment with smooth muscle relaxant agents provided he can tolerate these. I will need him off of his anticoagulation in order to perform appropriate dilation. He will need to be n.p.o. after midnight on Saturday for the above procedure. Risks and benefits were reviewed with the patient and his and include but are not limited to: Bleeding, infection, perforation, cardiac and pulmonary compromise. 03/04/17-We will be proceeding with upper endoscopy tomorrow. Now that the family is requesting colonoscopy do not want to cause barium residue in the colon and so we will cancel the barium swallow for the present time. If needed we can look for swallowing dysfunction and motility issues down the road post dilation. 03/05/17--upper endoscopy was done today and demonstrates the following: A distal esophageal stricture that was open enough to allow the scope but was dilated at the end of the case to 57 [place] by single pass Savary dilator. He tolerated this well. There is a moderate sized hiatal hernia and pangastritis which was biopsied 03/05/17--swallowing better at this time. This will continue to improve over the next several days, I will be surprised if he requires a repeat dilation sooner than 6 months from now. We can be contacted when this occurs in order to perform a second dilation at that time. As the patient is doing better at this time I will sign off the case, please do not hesitate to reconsult me if further questions arise which I can help with. 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 We can increase his Protonix to twice daily until we are sure of the findings, post upper endoscopy. This is been scheduled for Saturday, 03/05. 03/04/17--I suspect this patient may have gastritis possibly erosive which may be feeding into his anemia. We will perform dilation at the time most likely given his symptoms. His states that he gets sick with Protonix twice daily (?) but can tolerate Prilosec twice daily. 03/05/17--The patient is tolerating his Protonix well, he can continue this as an outpatient he only needs it once per day. He could be discharged home in my opinion, he can follow-up with me as needed for repeat upper endoscopy and dilation in 6-18 months. 03/06/17--Protonix prescription written for this patient upon discharge. He can follow-up with me as needed usually in 6-18 months every dilation is required. His biopsies from his stomach demonstrate no evidence of Helicobacter pylori, just the gastritis. Duodenum is free of celiac sprue changes. Current Visit: Yes (3) Anemia Status: Chronic Assessment and plan: This patient has hematocrit dropped to 33%. We will be looking in his upper and GI tract tomorrow to see if there is any erosions or ulcerations to be causing this however the patient's points out that he has 71 years old and has never had colorectal cancer screening. She believes that it will be difficult to get him back to the hospital order to do this and so asked that we perform both procedures at the same time tomorrow. I will oblige this request. 03/05/17--the patient's upper endoscopy results are as noted above. Colonoscopy demonstrated no evidence of bleeding source. There was a single small polyp noted in the descending colon removed by hot biopsy, moderate size internal hemorrhoids were also noted on retroflex. He can certainly be discharged home, with suggest a high-fiber diet. He may wish to use MiraLAX once or twice daily if he is having constipation. 03/06/17--Patient's anemia is stable, there is no evidence of an acute bleeding source. No recheck CBC today. No further workup on this issue. Current Visit: No (4) Colon cancer screening Status: Acute Assessment and plan: This patient may benefit from colorectal cancer screening some point in future once his acute issues are controlled. 03/04/17--We Will perform this tomorrow as per his 's/sisters request. 03/05/17--this was completed today with colonoscopy demonstrating a small polyp. Likely this is hyperplastic in which case she will need a repeat colonoscopy in 10 years. If the polyp proves to be adenomatous will be advisable to have him come back in 5 years. We will call him with biopsy results when these become available. 03/06/17--The patient's colonoscopy did indeed demonstrate a hyperplastic polyp. He will not need a repeat colonoscopy for 10 years. This patient is stable for discharge from GI standpoint. Current Visit: Yes Gastroenterology - PN: Subj Interval history: Some mild orthostatic hypotension symptoms. seems concerned the patient has hyponatremia which is being worked up by Dr. Felton. Dr. Rivera is signed off and will have the patient follow-up with Dr. Maynard. From a GI standpoint this patient is doing well and able to swallow. His colon did not show any significant pathology we did dilate his stricture and he does appear to be swallowing better. Exam (Progress Note) - Constitutional Vitals: Period Temp Pulse Resp BP Sys/Ford Pulse Ox Last 24 Hr 97.0 F-98.8 F 57-66 19-20 109-150/54-74 93-98 General appearance: no acute distress - Head Head exam: Present: normocephalic - Eye Eye exam: Present: EOMI - Neck Neck exam: Absent: tenderness - Respiratory Respiratory exam: Present: clear to auscultation bilaterally. Absent: rales, rhonchi - Cardiovascular Cardiovascular exam: Present: regular rate and rhythm - GI/Abdominal GI/Abdominal exam: Present: normal bowel sounds, soft. Absent: distended, guarding - Neurological Exam Neurological exam: Present: alert, oriented X3 - Psychiatric Psychiatric exam: Present: normal affect, normal mood - Skin Skin exam: Present: warm Results - Labs CBC & BMP: 03/05/17 05:16 03/06/17 08:32
--- NOTE | 2017-03-06 17:00 | Discharge Summary ---
Hospital Course - Hospital Course Hospital Course: Mr. Polanco is a 71 year old male with past medical history significant for thyroid problems, stable tremors, a large root of aorta, hypertension, and some unspecified rhythm problem who presents to our hospital [facility]. Patient is worked up and very concerned about her . He has been in and out of emergency rooms over the past couple of weeks several times. She related a story about him having a choking incident about a week ago. He had an appointment with Dr. Crook who took a look at his throat and said it was really irritated. He also had problems with the stomach. It seems like the ER physician imply that he was having some, gastro pruritic type symptoms and was constipated. He has no symptoms got better. When asked the family while they brought him in [facility]. It was because of the dizziness. He went to the hospital and [place] and they stated it was in her ear initially but then told that it was a electrolyte abnormality and recommend that he go home and eat pretzels. They said that his sodium was very low. Patient went home started throwing up cannot keep anything down and came to our hospital this time for further evaluation. When I look at the records in our system the same symptoms happen on December of this year. He had a workup with a cardiology and neurologist evaluation. There are no focal deficits on this patient. He seems to get weak at times when he has these spells. His reports that he had an implantable event monitor placed by Dr. Patricia for some of the symptoms. Patient 's is requesting that he be evaluated by cardiology Mr. Polanco was admitted to the hospital for workup of dizziness. He was also having nausea and vomiting. Cardiac enzymes were negative and his workup was otherwise unremarkable. He has hyponatremia and hypo-osmolality. He will need a workup for SIADH as an outpatient. He also complained of difficulty swallowing. He was seen by gastroenterology and underwent an upper endoscopy that showed esophageal stricture and he underwent dilatation without any complications. He is being discharged home today to follow-up with his primary care physician and GI as an outpatient. I stopped his Norvasc. I am starting him on Lasix and potassium supplementation. - Time spent with patient Time with patient DS: Greater than 30 minutes (Total discharge time for this patient, including [id number] time, clinical documentation, medication reconciliation, and discharge planning was 37 minutes.) Diagnosis - Discharge Diagnosis (1) Esophageal stricture Status: Acute (2) Hiatal hernia Status: Acute (3) Gastritis Status: Acute (4) Anemia Status: Chronic (5) Dysphagia Status: Chronic (6) Hyponatremia Status: Acute Discharge Plan - Discharge Data Disposition: Disch To Home/Self Care Condition at Discharge: Stable Discharge Diet: advance to your usual diet Activity: resume usual activities as tolerated Hygiene: no restrictions Weight Bearing at Discharge: full weight bearing Driving: no restrictions Contact your physician if you experience:: fever over 101, Difficulty voiding, Nausea/Vomiting, Bleeding - Discharge Medications New Furosemide Tab [Lasix Tab] 20 mg PO DAILY #30 tablet Potassium Chloride Cap/Tab [K Dur] 20 meq PO DAILY #30 tablet Continue Aspirin [Ecotrin] 81 mg PO DAILY Docusate Sodium 100 mg PO DAILY Levothyroxine Tab [Synthroid Tab] 50 mcg PO QAM Primidone 75 mg PO TID W/MEALS Pantoprazole Tab [Protonix Tab] 40 mg PO DAILY Discontinued amLODIPine [Norvasc] 2.5 mg PO DAILY #30 tablet - Follow Up or Referral - Forms/Instructions Additional Discharge Instructions: Follow-up with primary care physician in the next 7 days Exam - Constitutional Vitals: Period Temp Pulse Resp BP Sys/Ford Pulse Ox Last 24 Hr 97.0 F-98.8 F 57-66 19-20 109-150/54-74 93-98 Discharge Results Labs on day of discharge: Labs from last 24 hours 03/06/17 08:32 Sodium 132 L Potassium 3.7 Chloride 94 L Carbon Dioxide 28 Anion Gap 13.7 BUN 7 Creatinine 1.00 GFR Calculation 88 BUN/Creatinine Ratio 7.00 Glucose 140 H Calculated Osmolality 263.5 L Calcium 8.8 DS: Provider Date of admission: 03/03/17 11:46 Primary care physician: . No PCP Attending physician on admission: Beka Desai MD Consults: 03/02/17 06:08 Consult to Physician [CONS] Routine Comment: Patient known to cardiology near syncope episodes Consulting Provider: Cardiology - [facility] Consult Notification Comment: Dr Conrad saw on Saturday03/03/17 11:04 Consult to Physician [CONS] Routine Comment: recurrent chocking, r/o esophageal stricture Consulting Provider: Ruben Good Consulting Provider Notified: Yes Person Notified: ZO Date Notified: 03/03/17 Time Notified: 11:34 03/03/17 17:13 Consult to Anesthesiology [CONS] Routine Consulting Provider: Reason for Anesthesiology: Pre-op Clearance Discharging clinician: Clara Felton MD Expected date of discharge: 03/06/17
[2017-03-06 17:43] VITALS: BP 144/84
[2017-03-06] MEDS ORDERED: FUROSEMIDE 40 MG/4 ML VIAL IV ONE (17:48)
== END 2017-03-06 18:03 | disposition home or self-care (01) | DRG 641 ==
LOC: EDBD → EDUNIT# → N.ED 03:06 → N.EDINP 03:06 → SUATTDRO 05:54 → N.TELES 06:29 → SUATTDRO 03-03 11:46 → N.5E 03-03 16:35
PROVIDERS: ADMIT Internal Medicine; ATTEND Family Medicine

== ENCOUNTER 2019-12-13 22:46 | Inpatient (IN) ==
[2019-12-13 23:33] LABS: Basophils % 0.3 % (0.0-0.8); Eosinophils # 0.2 10*3/uL (0.0-0.87); Hemoglobin 11.3 GM/DL (14.0-18.0); Immature Granulocytes % 0.4 %; Immature Granulocytes Absolute 0.04 #; Lymphocytes # 0.5 10*3/uL (1.4-4.0); Lymphocytes % 5.8 % (21.2-54.2); Mean Corpuscular HGB Conc 33.2 GM/DL (32-36); Mean Platelet Volume 8.6 FL (9.6-12.0); Monocytes % 2.9 % (1.7-12.7); Neutrophils % 88.6 % (38.7-73.9); Platelet Count 235 T/CUMM (130-400); Red Cell Distribution Width 12.9 % (9.3-17.3); White Blood Count 9.2 T/CUMM (4-12)
[2019-12-13 23:52] LABS: Albumin 3.5 G/DL (3.4-5.0); Bilirubin,Total 1.1 MG/DL (0.2-1.0); Calcium 8.5 MG/DL (8.5-10.1); Osmolality,Calculated 268.5 MOS/KG (273-304); Total Protein 7.2 G/DL (6.4-8.3)
[2019-12-14 01:05] LABS: Apearance,Urine CLEAR (Clear); Bacteria,Urine Occasional /HPF (Few); Bilirubin,Urine Negative (Negative); Blood, Urine Negative (Negative); Glucose,Urine (UA) Negative (Negative); Hyaline Casts,Urine 6 /LPF (0-3); Ketones,Urine Negative (Negative); Mucus,Urine Few /LPF (Occasional); Nitrite,Urine Negative (Negative); Protein,Urine Negative; RBC,Urine 2 /HPF (0-4); Urine Color Amber (Yellow); Urine Specific Gravity > 1.060 (1.001-1.035); WBC,Urine <1 /HPF (0-6)
[2019-12-14] MEDS ORDERED: ONDANSETRON 4 MG/2 ML VIAL IV ONE (01:39)
[2019-12-14] MEDS ORDERED: MORPHINE 4 MG/1 ML VIAL IV STA (01:39)
[2019-12-14] MEDS ORDERED: SODIUM CHLORIDE 0.9% 1,000 ML IV STA (02:47)
[2019-12-14] MEDS ORDERED: ALBUTEROL 2.5 MG/3 ML NEB RESP TX PRN (03:29)
[2019-12-14] MEDS ORDERED: MORPHINE 4 MG/1 ML VIAL IV PRN (03:29)
[2019-12-14] MEDS ORDERED: ONDANSETRON 4 MG/2 ML VIAL IV PRN (03:29)
[2019-12-14] MEDS ORDERED: DOCUSATE SODIUM 100 MG CAPSULE PO PRN (03:29)
[2019-12-14] MEDS: PANTOPRAZOLE 40 MG VIAL IV SCH (04:00)
[2019-12-14] MEDS: SODIUM CHLORIDE 0.9% 1,000 ML IV SCH ×4 (04:00→21:37)
[2019-12-14 05:43] LABS: PT Patient Result 10.7 SECS (9.6-12.2)
[2019-12-14] MEDS: PIPERACILLIN/TAZOBACTAM 3,375 MG in SODIUM CHLORIDE 0.9% 100 ML IV SCH ×3 (05:54→21:38)
[2019-12-14 07:55] LABS: Albumin 3.2 G/DL (3.4-5.0); Bilirubin,Direct 1.39 MG/DL (0.0-0.20); Bilirubin,Indirect 0.7 MG/DL (0.0-1.0); Bilirubin,Total 2.1 MG/DL (0.2-1.0); Total Protein 6.3 G/DL (6.4-8.3)
[2019-12-15] MEDS: PANTOPRAZOLE 40 MG VIAL IV SCH (03:14)
[2019-12-15 05:06] LABS: Basophils % 0.3 % (0.0-0.8); Eosinophils # 0.1 10*3/uL (0.0-0.87); Eosinophils % 1.1 % (0.00-10.9); Hematocrit 32.5 VOL% (42.0-52.0); Hemoglobin 10.8 GM/DL (14.0-18.0); INR 1.1; Immature Granulocytes % 0.9 %; Lymphocytes # 0.4 10*3/uL (1.4-4.0); Lymphocytes % 3.1 % (21.2-54.2); Mean Corpuscular HGB Conc 33.2 GM/DL (32-36); Mean Corpuscular Volume 101.6 FL (87-102); Mean Platelet Volume 9.3 FL (9.6-12.0); Monocytes % 6.9 % (1.7-12.7); Neutrophils % 87.7 % (38.7-73.9); Platelet Count 194 T/CUMM (130-400); Red Cell Distribution Width 13.3 % (9.3-17.3); White Blood Count 11.5 T/CUMM (4-12)
[2019-12-15] MEDS: PIPERACILLIN/TAZOBACTAM 3,375 MG in SODIUM CHLORIDE 0.9% 100 ML IV SCH ×3 (05:08→21:31)
[2019-12-15 05:33] LABS: Band Neutrophils 5 % (0-10); Eosinophils 2 % (0-10); Hypochromasia 1+; Lymphocytes 3 % (20-55); Ovalocytes Slight; Platelet Estimate Adequate; Segmented Neutrophils 84 % (50-85); Total Cells Counted 100
[2019-12-15 05:55] LABS: Albumin 2.9 G/DL (3.4-5.0); Bilirubin,Total 4.3 MG/DL (0.2-1.0); Calcium 8.2 MG/DL (8.5-10.1); Osmolality,Calculated 275.7 MOS/KG (273-304); Risk Ratio 3.14; Thyroid Stimulating Hormone 1.54 uIU/ml (0.358-3.74); Total Protein 6.3 G/DL (6.4-8.3); VLDL CHOLESTEROL 11.4 MG/DL
[2019-12-15 06:04] LABS: Albumin 3.1 G/DL (3.4-5.0); Bilirubin,Direct 2.9 MG/DL (0.0-0.20); Bilirubin,Indirect 1.4 MG/DL (0.0-1.0); Bilirubin,Total 4.3 MG/DL (0.2-1.0)
[2019-12-15] MEDS ORDERED: LACTATED RINGERS 1,000 ML IV SCH (08:00)
[2019-12-15] MEDS ORDERED: INDOMETHACIN SUPP 50 MG SUPP RECTAL ONE ×2 (08:00→10:33)
[2019-12-15] MEDS ORDERED: SUCCINYLCHOLINE 200 MG/10 ML VIAL ONE (09:00)
[2019-12-15] MEDS ORDERED: LIDOCAINE 2% 5 ML VIAL ONE (09:00)
[2019-12-15] MEDS ORDERED: PHENYLEPHRINE 1 MG/10 ML SYRINGE IV ONE (09:00)
[2019-12-15] MEDS ORDERED: ROCURONIUM 100 MG/10 ML VIAL IV ONE (09:00)
[2019-12-15] MEDS ORDERED: propofoL 200 MG/20 ML VIAL IV ONE (09:00)
[2019-12-15] MEDS ORDERED: fentaNYL 100 MCG/2 ML VIAL ONE (10:07)
[2019-12-15] MEDS ORDERED: MIDAZOLAM 2 MG/2 ML VIAL ONE (10:08)
[2019-12-15] MEDS ORDERED: POTASSIUM CHLORIDE 20 MEQ TABLET PO ONE (12:00)
[2019-12-15] MEDS ORDERED: MAGNESIUM SULF RIDER 2 GM in PREMIX 1 EACH IV ONE (12:00)
[2019-12-15] MEDS ORDERED: SEVOFLURANE 1 UNIT/15 MINUTE INH ONE (13:00)
[2019-12-15] MEDS ORDERED: POTASSIUM CHLORIDE 20 MEQ TABLET PO PRN (13:24)
[2019-12-15] MEDS: DEXT 5% NACL 0.45% KCL 20 MEQ 20 MEQ/1,000 ML BAG IV SCH (14:45)
[2019-12-15] MEDS: SERTRALINE 50 MG TABLET PO SCH (15:56)
[2019-12-15] MEDS: LEVOTHYROXINE 75 MCG TABLET PO SCH (15:56)
[2019-12-15] MEDS: SODIUM CHLORIDE 0.9% 1,000 ML IV SCH (18:01)
[2019-12-16] MEDS: PANTOPRAZOLE 40 MG VIAL IV SCH (03:19)
[2019-12-16] MEDS: DEXT 5% NACL 0.45% KCL 20 MEQ 20 MEQ/1,000 ML BAG IV SCH ×2 (03:19→20:13)
[2019-12-16] MEDS: PIPERACILLIN/TAZOBACTAM 3,375 MG in SODIUM CHLORIDE 0.9% 100 ML IV SCH ×3 (05:32→20:02)
[2019-12-16 06:09] LABS: Basophils % 0.6 % (0.0-0.8); Eosinophils # 0.2 10*3/uL (0.0-0.87); Eosinophils % 3.4 % (0.00-10.9); Hematocrit 29.6 VOL% (42.0-52.0); Hemoglobin 9.6 GM/DL (14.0-18.0); Immature Granulocytes % 0.5 %; Immature Granulocytes Absolute 0.03 #; Lymphocytes # 0.3 10*3/uL (1.4-4.0); Lymphocytes % 4.8 % (21.2-54.2); Mean Corpuscular HGB Conc 32.4 GM/DL (32-36); Mean Corpuscular Volume 102.4 FL (87-102); Mean Platelet Volume 9.2 FL (9.6-12.0); Monocytes % 4.7 % (1.7-12.7); Platelet Count 149 T/CUMM (130-400); Red Blood Count 2.89 MC/CUMM (3.8-5.5); Red Cell Distribution Width 13.4 % (9.3-17.3); White Blood Count 6.4 T/CUMM (4-12)
[2019-12-16 06:27] LABS: Albumin 2.3 G/DL (3.4-5.0); Bilirubin,Total 2.8 MG/DL (0.2-1.0); Osmolality,Calculated 271.8 MOS/KG (273-304); Total Protein 5.5 G/DL (6.4-8.3)
[2019-12-16 06:28] LABS: Albumin 2.3 G/DL (3.4-5.0); Bilirubin,Direct 1.57 MG/DL (0.0-0.20); Bilirubin,Indirect 1.2 MG/DL (0.0-1.0); Bilirubin,Total 2.8 MG/DL (0.2-1.0); Total Protein 5.5 G/DL (6.4-8.3)
[2019-12-16 06:31] LABS: Band Neutrophils 1 % (0-10); Eosinophils 3 % (0-10); Hypochromasia 1+; Lymphocytes 3 % (20-55); Platelet Estimate Normal; Segmented Neutrophils 89 % (50-85); Total Cells Counted 100
[2019-12-16] MEDS: LEVOTHYROXINE 75 MCG TABLET PO SCH (10:06)
[2019-12-16] MEDS: SERTRALINE 50 MG TABLET PO SCH (10:06)
[2019-12-16] MEDS ORDERED: TISSUE ADHESIVE 1 EACH APPLICATOR TOP ONE ×2 (11:42→11:55)
[2019-12-16] MEDS ORDERED: LIDOCAINE 1%/EPI INJ 20 ML VIAL ONE ×2 (11:43→11:54)
[2019-12-16] MEDS ORDERED: BUPIVACAINE MPF 0.25% 30 ML VIAL ONE (11:43)
[2019-12-16] MEDS ORDERED: BUPIVACAINE 0.25% /EPI 10 ML VIAL ONE ×2 (11:54→11:55)
[2019-12-16] MEDS ORDERED: SUGAMMADEX 200 MG/2 ML VIAL IV ONE (13:21)
[2019-12-16] MEDS ORDERED: propofoL 200 MG/20 ML VIAL IV ONE (13:40)
[2019-12-16] MEDS ORDERED: PHENYLEPHRINE 1 MG/10 ML SYRINGE IV ONE (13:41)
[2019-12-16] MEDS ORDERED: SEVOFLURANE 1 UNIT/15 MINUTE INH ONE (13:41)
[2019-12-16] MEDS ORDERED: fentaNYL 100 MCG/2 ML VIAL ONE (13:41)
[2019-12-16] MEDS ORDERED: LIDOCAINE 2% 5 ML VIAL ONE (13:41)
[2019-12-16] MEDS ORDERED: SUCCINYLCHOLINE 200 MG/10 ML VIAL ONE (13:41)
[2019-12-16] MEDS ORDERED: ONDANSETRON 4 MG/2 ML VIAL ONE ×2 (13:41→14:13)
[2019-12-16] MEDS ORDERED: ETOMIDATE 40 MG/20 ML VIAL IV ONE (13:41)
[2019-12-16] MEDS ORDERED: ROCURONIUM 100 MG/10 ML VIAL IV ONE (13:42)
[2019-12-16] MEDS ORDERED: SODIUM CHLORIDE 0.9% 250 ML IV ONE (13:42)
[2019-12-16] MEDS ORDERED: HYDROmorphone 2 MG/1 ML VIAL ONE (14:13)
[2019-12-16] MEDS ORDERED: HYDROmorphone 2 MG/1 ML VIAL IV PRN (14:14)
[2019-12-16] MEDS ORDERED: ONDANSETRON 4 MG/2 ML VIAL IV PRN (14:14)
[2019-12-16] MEDS: ACETAMINOPHEN 325 MG TABLET PO PRN (20:02)
[2019-12-17] MEDS: PANTOPRAZOLE 40 MG VIAL IV SCH (03:05)
[2019-12-17] MEDS: PIPERACILLIN/TAZOBACTAM 3,375 MG in SODIUM CHLORIDE 0.9% 100 ML IV SCH ×3 (05:54→21:07)
[2019-12-17] MEDS: DEXT 5% NACL 0.45% KCL 20 MEQ 20 MEQ/1,000 ML BAG IV SCH ×2 (08:25→21:07)
[2019-12-17] MEDS: SERTRALINE 50 MG TABLET PO SCH (08:25)
[2019-12-17] MEDS: LEVOTHYROXINE 75 MCG TABLET PO SCH (08:25)
[2019-12-17 13:35] LABS: Apearance,Urine CLEAR (Clear); Bacteria,Urine Occasional /HPF (Few); Bilirubin,Urine Negative (Negative); Blood, Urine Small mg/dL (Negative); Glucose,Urine (UA) Negative (Negative); Ketones,Urine Negative (Negative); Mucus,Urine Occasional /LPF (Occasional); Nitrite,Urine Negative (Negative); Protein,Urine Negative; RBC,Urine 3 /HPF (0-4); Squamous Epithelial Cell,Urine Occasional /HPF (0-10); Urine Color Amber (Yellow); Urine Specific Gravity 1.012 (1.001-1.035); WBC,Urine <1 /HPF (0-6)
[2019-12-17] MEDS ORDERED: VANCOMYCIN INJ 1,000 MG in SODIUM CHLORIDE 0.9% 250 ML IV ONE (18:00)
[2019-12-17] MEDS: ACETAMINOPHEN 325 MG TABLET PO PRN (21:07)
[2019-12-18] MEDS: PANTOPRAZOLE 40 MG VIAL IV SCH (03:44)
[2019-12-18] MEDS: PIPERACILLIN/TAZOBACTAM 3,375 MG in SODIUM CHLORIDE 0.9% 100 ML IV SCH ×3 (05:40→21:00)
[2019-12-18 08:14] LABS: Basophils % 0.5 % (0.0-0.8); Eosinophils # 0.3 10*3/uL (0.0-0.87); Eosinophils % 4.2 % (0.00-10.9); Hematocrit 27.9 VOL% (42.0-52.0); Hemoglobin 9.3 GM/DL (14.0-18.0); Immature Granulocytes % 0.8 %; Immature Granulocytes Absolute 0.05 #; Lymphocytes # 0.7 10*3/uL (1.4-4.0); Lymphocytes % 10.6 % (21.2-54.2); Mean Corpuscular HGB Conc 33.3 GM/DL (32-36); Mean Corpuscular Volume 101.8 FL (87-102); Monocytes % 9.3 % (1.7-12.7); Neutrophils % 74.6 % (38.7-73.9); Platelet Count 140 T/CUMM (130-400); Red Blood Count 2.74 MC/CUMM (3.8-5.5); Red Cell Distribution Width 13.2 % (9.3-17.3); White Blood Count 6.4 T/CUMM (4-12)
[2019-12-18] MEDS: SERTRALINE 50 MG TABLET PO SCH (08:32)
[2019-12-18] MEDS: LEVOTHYROXINE 75 MCG TABLET PO SCH (08:32)
[2019-12-18 08:51] LABS: Albumin 2.2 G/DL (3.4-5.0); Bilirubin,Total 1.4 MG/DL (0.2-1.0); Calcium 8.4 MG/DL (8.5-10.1); Osmolality,Calculated 266.1 MOS/KG (273-304); Total Protein 5.7 G/DL (6.4-8.3)
[2019-12-18] MEDS: DEXT 5% NACL 0.45% KCL 20 MEQ 20 MEQ/1,000 ML BAG IV SCH ×2 (09:46→23:20)
[2019-12-18] MEDS: ACETAMINOPHEN 325 MG TABLET PO PRN ×2 (11:27→18:48)
[2019-12-19] MEDS: ACETAMINOPHEN 325 MG TABLET PO PRN (02:22)
[2019-12-19] MEDS: PANTOPRAZOLE 40 MG VIAL IV SCH (02:30)
[2019-12-19] MEDS: PIPERACILLIN/TAZOBACTAM 3,375 MG in SODIUM CHLORIDE 0.9% 100 ML IV SCH ×2 (04:57→12:28)
[2019-12-19 05:18] LABS: Basophils % 0.5 % (0.0-0.8); Eosinophils # 0.3 10*3/uL (0.0-0.87); Eosinophils % 5.3 % (0.00-10.9); Hemoglobin 9.1 GM/DL (14.0-18.0); Immature Granulocytes % 0.8 %; Immature Granulocytes Absolute 0.05 #; Lymphocytes # 0.8 10*3/uL (1.4-4.0); Mean Corpuscular HGB Conc 33.7 GM/DL (32-36); Mean Corpuscular Volume 99.6 FL (87-102); Mean Platelet Volume 9.5 FL (9.6-12.0); Monocytes % 7.3 % (1.7-12.7); Neutrophils % 74.1 % (38.7-73.9); Platelet Count 166 T/CUMM (130-400); Red Blood Count 2.71 MC/CUMM (3.8-5.5); Red Cell Distribution Width 13.2 % (9.3-17.3); White Blood Count 6.4 T/CUMM (4-12)
[2019-12-19] MEDS ORDERED: amLODIPine 5 MG TABLET PO SCH (05:30)
[2019-12-19 05:57] LABS: Risk Ratio 6.57; VLDL CHOLESTEROL 19.6 MG/DL
[2019-12-19 05:58] LABS: Albumin 2.2 G/DL (3.4-5.0); Bilirubin,Total 1.1 MG/DL (0.2-1.0); Calcium 8.2 MG/DL (8.5-10.1); Total Protein 5.7 G/DL (6.4-8.3)
[2019-12-19] MEDS ORDERED: LEVOTHYROXINE 75 MCG TABLET PO SCH (06:00)
[2019-12-19 12:58] VITALS: BP 137/62
[2019-12-19] MEDS ORDERED: AMOXICILLIN/CLAV 500 MG TABLET PO SCH (21:00)
[2019-12-19] MEDS ORDERED: SERTRALINE 50 MG TABLET PO SCH (21:00)
[2019-12-19] MEDS ORDERED: TAMSULOSIN 0.4 MG CAPSULE PO SCH (21:00)
== END 2019-12-19 14:29 | disposition home or self-care (01) | DRG 418 ==
LOC: N.ED 22:46 → N.EDINP 12-14 03:16 → SUATTDRO 12-14 03:16 → N.CC 12-14 03:37 → N.3E 12-15 17:48
PROVIDERS: ADMIT Internal Medicine; ATTEND Internal Medicine
PROC: ERCPWSP (ICD-10-PCS; 2019-12-15 10:35)
PROC: LAPCHOL (2019-12-16 12:25)

== ENCOUNTER 2022-11-13 05:32 | Inpatient (IN) ==
[2022-11-07 12:05] LABS: Basophils # 0.1 10*3/uL (0.0-0.2); Basophils % 1.1 % (0.0-0.8); Eosinophils # 0.3 10*3/uL (0.0-0.87); Eosinophils % 6.1 % (0.00-10.9); Hematocrit 36.1 VOL% (42.0-52.0); Hemoglobin 12.2 GM/DL (14.0-18.0); Immature Granulocytes % 0.4 %; Immature Granulocytes Absolute 0.02 #; Mean Corpuscular HGB Conc 33.8 GM/DL (32-36); Mean Corpuscular Volume 99.2 FL (87-102); Mean Platelet Volume 9.2 FL (9.6-12.0); Monocytes # 0.4 10*3/uL (0.11-0.8); Monocytes % 7.9 % (1.7-12.7); Neutrophils % 66.5 % (38.7-73.9); Platelet Count 255 T/CUMM (130-400); Red Blood Count 3.64 MC/CUMM (3.8-5.5); Red Cell Distribution Width 13.2 % (9.3-17.3); White Blood Count 5.4 T/CUMM (4-12)
[2022-11-07 12:16] LABS: Bilirubin,Total 0.6 MG/DL (0.20-1.00); Calcium 9.2 MG/DL (8.5-10.1); Osmolality,Calculated 279.5 MOS/KG (273-304); PT Patient Result 10.7 SECS (10.1-12.1); Partial Thromboplastin Time 25.9 SECS (23.7-32.9); Potassium 4.3 MMOL/L (3.5-5.1); Total Protein 7.2 G/DL (6.4-8.2)
[2022-11-12 15:18] LABS: Bilirubin,Urine Negative (Negative); Blood, Urine Moderate mg/dL (Negative); Glucose,Urine (UA) Negative (Negative); Ketones,Urine Negative (Negative); Nitrite,Urine Negative (Negative); Protein,Urine Negative (Negative); Urine Appearance Clear (Clear); Urine Color Yellow (Yellow); Urine Specific Gravity 1.025 (1.001-1.035); Urine Urobilinogen 0.2 eU/dL (<2.0); Urine pH 5.5 (4.5-8.0)
[2022-11-12 15:22] LABS: Mucus,Urine Occasional /LPF (Occasional); RBC,Urine 37 /HPF (0-4); Squamous Epithelial Cell,Urine Occasional /HPF (0-10)
[2022-11-13] MEDS ORDERED: VANCOMYCIN INJ 1,000 MG in SODIUM CHLORIDE 0.9% 250 ML IV ONE (06:00)
[2022-11-13] MEDS ORDERED: LACTATED RINGERS 1,000 ML IV SCH (06:00)
[2022-11-13] MEDS ORDERED: GABAPENTIN 400 MG CAPSULE ONE (06:49)
[2022-11-13] MEDS ORDERED: ACETAMINOPHEN 500 MG TABLET ONE (06:49)
[2022-11-13] MEDS ORDERED: ACETAMINOPHEN 500 MG TABLET PO ONE (06:52)
[2022-11-13] MEDS ORDERED: GABAPENTIN 400 MG CAPSULE PO ONE (06:55)
[2022-11-13] MEDS ORDERED: LIDOCAINE 2% 5 ML VIAL ONE ×2 (07:48→07:50)
[2022-11-13] MEDS ORDERED: propofoL 200 MG/20 ML VIAL IV ONE (07:48)
[2022-11-13] MEDS ORDERED: ROCURONIUM 50 MG/5 ML VIAL IV ONE (07:48)
[2022-11-13] MEDS ORDERED: fentaNYL 100 MCG/2 ML VIAL ONE ×2 (07:48)
[2022-11-13] MEDS ORDERED: DEXAMETHASONE 4 MG/1 ML VIAL ONE (07:50)
[2022-11-13] MEDS ORDERED: ROPIVACAINE 0.5% 30 ML VIAL ONE (07:50)
[2022-11-13] MEDS ORDERED: SODIUM CHLORIDE 0.9% 100 ML IV ONE (08:11)
[2022-11-13] MEDS ORDERED: SEVOFLURANE 1 UNIT/15 MINUTE INH ONE (08:11)
[2022-11-13] MEDS ORDERED: TRANEXAMIC ACID 1,000 MG/10 ML VIAL ONE (08:11)
[2022-11-13] MEDS ORDERED: ONDANSETRON 4 MG/2 ML VIAL ONE (08:59)
[2022-11-13] MEDS ORDERED: LACTULOSE 20 GM/30 ML UDCUP PO PRN (09:01)
[2022-11-13] MEDS ORDERED: TEMAZEPAM 7.5 MG CAPSULE PO PRN (09:01)
[2022-11-13] MEDS ORDERED: diphenhydrAMINE CAP 25 MG CAPSULE PO PRN (09:01)
[2022-11-13] MEDS ORDERED: ONDANSETRON 4 MG/2 ML VIAL IV PRN ×2 (09:01→10:56)
[2022-11-13] MEDS ORDERED: MAGNESIUM HYDROXIDE SUSP 30 ML UDCUP PO PRN (09:01)
[2022-11-13] MEDS ORDERED: PROMETHAZINE 25 MG/1 ML VIAL IM PRN (09:01)
[2022-11-13] MEDS ORDERED: BISACODYL 10 MG SUPP RECTAL PRN (09:01)
[2022-11-13] MEDS ORDERED: MEPERIDINE 25 MG/1 ML VIAL IM PRN ×2 (09:04→09:11)
[2022-11-13] MEDS ORDERED: traMADol 50 MG TABLET PO PRN (09:05)
[2022-11-13] MEDS ORDERED: MECLIZINE 25 MG TABLET PO PRN (09:05)
[2022-11-13] MEDS ORDERED: POLYVINYL 0.5%/POVIDONE 0.6% OPH SOLN 15 ML BOTTLE BOTH EYES PRN (09:05)
[2022-11-13] MEDS ORDERED: NON-FORMULARY MEDICATION (Acetaminophen 500 mg Capsule) PO PRN (09:05)
[2022-11-13] MEDS ORDERED: NEOSTIGMINE 10 MG/10 ML VIAL ONE (10:04)
[2022-11-13] MEDS ORDERED: GLYCOPYRROLATE 0.4 MG/2 ML VIAL ONE (10:04)
[2022-11-13] MEDS ORDERED: MEPERIDINE 25 MG/1 ML VIAL ONE (10:54)
[2022-11-13] MEDS ORDERED: MEPERIDINE 25 MG/1 ML VIAL IV PRN (10:56)
[2022-11-13] MEDS: ceFAZolin 2,000 MG/50 ML DUPLEX IV SCH ×2 (17:18→23:43)
[2022-11-13] MEDS: FONDAPARINUX 2.5 MG/0.5 ML SYRINGE SUBCUT SCH (17:20)
[2022-11-13] MEDS: SERTRALINE 50 MG TABLET PO SCH (20:46)
[2022-11-13] MEDS: DICLOFENAC SODIUM 75 MG TABLET PO SCH (20:46)
[2022-11-13] MEDS: PROPRANOLOL 10 MG TABLET PO SCH (20:46)
[2022-11-13] MEDS: DOCUSATE SODIUM 100 MG CAPSULE PO SCH (20:46)
[2022-11-13] MEDS ORDERED: DOCUSATE SODIUM 100 MG CAPSULE PO SCH (21:00)
[2022-11-14] MEDS: LEVOTHYROXINE 100 MCG TABLET PO SCH (05:49)
[2022-11-14 06:29] LABS: Basophils % 0.2 % (0.0-0.8); Eosinophils # 0.1 10*3/uL (0.0-0.87); Eosinophils % 1.2 % (0.00-10.9); Hematocrit 26.7 VOL% (42.0-52.0); Hemoglobin 9.1 GM/DL (14.0-18.0); Immature Granulocytes % 0.5 %; Immature Granulocytes Absolute 0.04 #; Lymphocytes # 1.1 10*3/uL (1.4-4.0); Lymphocytes % 12.4 % (21.2-54.2); Mean Corpuscular HGB Conc 34.1 GM/DL (32-36); Mean Corpuscular Volume 99.6 FL (87-102); Mean Platelet Volume 9.2 FL (9.6-12.0); Monocytes # 0.7 10*3/uL (0.11-0.8); Monocytes % 8.2 % (1.7-12.7); Neutrophils % 77.5 % (38.7-73.9); Platelet Count 181 T/CUMM (130-400); Red Blood Count 2.68 MC/CUMM (3.8-5.5); Red Cell Distribution Width 13.2 % (9.3-17.3); White Blood Count 8.61 T/CUMM (4-12)
[2022-11-14 06:46] LABS: Calcium 8.3 MG/DL (8.5-10.1); Osmolality,Calculated 280.5 MOS/KG (273-304); Potassium 3.5 MMOL/L (3.5-5.1)
[2022-11-14] MEDS: PROPRANOLOL 10 MG TABLET PO SCH ×2 (08:50→21:45)
[2022-11-14] MEDS: amLODIPine 5 MG TABLET PO SCH (08:50)
[2022-11-14] MEDS: DOCUSATE SODIUM 100 MG CAPSULE PO SCH ×2 (08:50→21:45)
[2022-11-14] MEDS: PANTOPRAZOLE 40 MG TABLET PO SCH (08:50)
[2022-11-14] MEDS ORDERED: ACETAMINOPHEN 325 MG TABLET PO PRN (09:02)
[2022-11-14] MEDS: DICLOFENAC SODIUM 75 MG TABLET PO SCH ×2 (09:04→21:45)
[2022-11-14] MEDS: ASPIRIN EC 81 MG TABLET PO SCH (11:39)
[2022-11-14] MEDS: FERROUS SULFATE 325 MG TABLET PO SCH (11:39)
[2022-11-14] MEDS: FONDAPARINUX 2.5 MG/0.5 ML SYRINGE SUBCUT SCH (17:55)
[2022-11-14] MEDS: SERTRALINE 50 MG TABLET PO SCH (21:45)
[2022-11-15 04:52] LABS: Basophils # 0.1 10*3/uL (0.0-0.2); Basophils % 0.7 % (0.0-0.8); Eosinophils # 0.3 10*3/uL (0.0-0.87); Eosinophils % 4.7 % (0.00-10.9); Hematocrit 27.1 VOL% (42.0-52.0); Hemoglobin 9.4 GM/DL (14.0-18.0); Immature Granulocytes % 0.4 %; Immature Granulocytes Absolute 0.03 #; Lymphocytes # 0.9 10*3/uL (1.4-4.0); Lymphocytes % 12.8 % (21.2-54.2); Mean Corpuscular HGB Conc 34.7 GM/DL (32-36); Mean Corpuscular Volume 98.9 FL (87-102); Monocytes # 0.7 10*3/uL (0.11-0.8); Monocytes % 9.4 % (1.7-12.7); Platelet Count 173 T/CUMM (130-400); Red Blood Count 2.74 MC/CUMM (3.8-5.5); Red Cell Distribution Width 13.2 % (9.3-17.3); White Blood Count 7.26 T/CUMM (4-12)
[2022-11-15] MEDS: LEVOTHYROXINE 100 MCG TABLET PO SCH (06:32)
[2022-11-15] MEDS: DOCUSATE SODIUM 100 MG CAPSULE PO SCH ×2 (08:19→21:53)
[2022-11-15] MEDS: DICLOFENAC SODIUM 75 MG TABLET PO SCH ×2 (08:19→21:53)
[2022-11-15] MEDS: PANTOPRAZOLE 40 MG TABLET PO SCH (08:19)
[2022-11-15] MEDS: PROPRANOLOL 10 MG TABLET PO SCH ×2 (08:19→21:53)
[2022-11-15] MEDS: amLODIPine 5 MG TABLET PO SCH (08:19)
[2022-11-15] MEDS: ASPIRIN EC 81 MG TABLET PO SCH (11:03)
[2022-11-15] MEDS: FERROUS SULFATE 325 MG TABLET PO SCH (11:03)
[2022-11-15] MEDS: FONDAPARINUX 2.5 MG/0.5 ML SYRINGE SUBCUT SCH (17:15)
[2022-11-15] MEDS: SERTRALINE 50 MG TABLET PO SCH (21:53)
[2022-11-16] MEDS: LEVOTHYROXINE 100 MCG TABLET PO SCH (05:38)
[2022-11-16 07:23] VITALS: BP 145/70
[2022-11-16] MEDS: DOCUSATE SODIUM 100 MG CAPSULE PO SCH (08:19)
[2022-11-16] MEDS: amLODIPine 5 MG TABLET PO SCH (08:19)
[2022-11-16] MEDS: DICLOFENAC SODIUM 75 MG TABLET PO SCH (08:20)
[2022-11-16] MEDS: PROPRANOLOL 10 MG TABLET PO SCH (08:20)
[2022-11-16] MEDS: PANTOPRAZOLE 40 MG TABLET PO SCH (08:20)
[2022-11-16] MEDS ORDERED: ASPIRIN EC 81 MG TABLET PO SCH (09:00)
[2022-11-17] MEDS ORDERED: FERROUS SULFATE 325 MG TABLET PO SCH (08:00)
[2022-12-04] MEDS ORDERED: CYANOCOBALAMIN 1000 MCG/1 ML VIAL IM SCH (09:00)
== END 2022-11-16 09:37 | disposition swing bed (61) | DRG 470 ==
LOC: N.OR 05:32 → N.SDSINP 05:32 → N.3E 09:01
PROVIDERS: ADMIT Orthopaedic Surgery; ATTEND Orthopaedic Surgery